=== PATIENT | female | born 1940 | race Caucasian/White ===

== ENCOUNTER 2020-05-22 08:32 | Outpatient (CLI) | payer MEDICARE, SELFPAY ==
--- NOTE | 2020-05-22 08:35 | ECG_ITS ---
Measurements Intervals [place] Rate: 59 P: 1 AR: 158 QRS: -11 QRSD: 93 T: 17 QT: 392 QTc: 389 Interpretive Statements SINUS BRADYCARDIA VOLTAGE CRITERIA FOR LVH POOR R WAVE PROGRESSION, ANTERIOR LEADS BASELINE ARTIFACT- I, II, III, AVR, AVL, AVF BORDERLINE ECG Electronically Signed On 05-22-2020 11:49:52 CDT by Mj Hernandez D.O.
[2020-05-22 09:11] LABS: Anion Gap 8 mmol/L (8-16); Blood Urea Nitrogen 21 mg/dL (7-17); Calcium 10.2 mg/dL (8.4-10.2); Carbon Dioxide 30 mmol/L (22-30); Chloride 99 mmol/L (98-107); Estimated Glomerular Filt Rate > 60; Glucose 101 mg/dL (65-105); Sodium 137 mmol/L (137-145)
== END 2020-05-22 08:33 | disposition home or self-care (01) ==
PROVIDERS: Anesthesiology; PCP Family Medicine; Visit Provider Orthopaedic Surgery
DX: Z01.818 Encounter for other preprocedural examination (principal); E78.00 Pure hypercholesterolemia, unspecified; Z79.899 Other long term (current) drug therapy
CPT/HCPCS: 36415; 80048; 93005

== ENCOUNTER 2020-05-23 00:40 | Outpatient (CLI) | payer MEDICARE, SELFPAY ==
[2020-05-23 18:35] LABS: SARS-CoV-2 RNA PCR Negative
== END 2020-05-23 00:41 | disposition home or self-care (01) ==
LOC: ANHCOVIDDT 00:40
PROVIDERS: Visit Provider Orthopaedic Surgery
DX: Z01.812 Encounter for preprocedural laboratory examination (principal); Z20.828 Contact with and (suspected) exposure to other viral communicable diseases
CPT/HCPCS: 87635; C9803; U0003

== ENCOUNTER 2020-05-26 01:34 | Day surgery (SDC) | payer MEDICARE, SELFPAY ==
[2020-05-20 13:54] VITALS: BMI 34.2
[2020-05-26] VITALS (7 sets, daily range): BP systolic 128–150; BP diastolic 55–81; PULSE 55–77; RESP 8–18; TEMP 36.4–36.6; O2SAT 94–98
--- NOTE | 2020-05-26 08:52 | WPDANESEPPF ---
Anes - Initial Pre Proc Eval Procedure: Operation Date: 05/26/20 10:30 Proposed Procedures p Left Knee Arthroscopy with Peripatellar Debridement - Tyler Lester MD Date/Time: 05/26/20 08:52 Surgeon: Tyler Lester MD Pre Op Diagnosis: left knee peripatellar pain Patient Data Age: 79 Gender: F Height: 5 ft 6 in Weight: 96.36 kg Allergies Allergy/AdvReac Type Severity Reaction Status Date / Time No Known Allergies Allergy Verified 05/20/20 13:23 Home Medications Medication Instructions Recorded Confirmed Type calcium carbonate-vitamin D3 600 1 tablet PO BID 10/31/19 05/20/20 History mg(1,500 mg)-400 unit chewable tablet cholecalciferol (vitamin D3) 125 5,000 unit PO BID 10/31/19 05/20/20 History mcg (5,000 unit) capsule docusate sodium 100 mg capsule 100 mg PO BID PRN 10/31/19 05/20/20 History furosemide 20 mg tablet 20 mg PO QAM 10/31/19 05/20/20 History hydrochlorothiazide 50 mg tablet 50 mg PO DAILY 10/31/19 05/20/20 History pantoprazole 40 mg tablet,delayed 40 mg PO QAM 10/31/19 05/20/20 History release potassium chloride 20 mEq 20 meq PO DAILY 10/31/19 05/20/20 History tablet,extended release(part/cryst) sennosides 25 mg tablet 25 mg PO DAILY PRN 10/31/19 05/20/20 History simvastatin 80 mg tablet 80 mg PO DAILY 10/31/19 05/20/20 History verapamil 240 mg tablet,extended 240 mg PO DAILY 10/31/19 05/20/20 History release acetaminophen 650 mg 650 mg PO Q12H 05/20/20 05/20/20 History tablet,extended release aspirin 325 mg PO DAILY 05/20/20 05/20/20 History biotin 5,000 mcg disintegrating 10,000 mcg PO DAILY 05/20/20 05/20/20 History tablet fluticasone furoate 27.5 1 spray NASAL DAILY PRN 05/20/20 05/20/20 History mcg/actuation nasal spray,suspension meclizine 25 mg tablet 25 mg PO BID PRN 05/20/20 05/20/20 History teriparatide 20 mcg/dose (600 20 mcg SUB-Q DAILY 05/20/20 05/20/20 History mcg/2.4 mL) subcutaneous pen injector Patient hx anesthesia problems: post op nausea/vomiting Family hx anesthesia problems: none PMFSH Past Medical History Medical History Adult BMI 34.0-34.9 kg/sq m BMI 26.0-26.9,adult GERD (gastroesophageal reflux disease) Hyperlipidemia Hypertension Surgical History Surgical History History of back surgery Back disc 02/08/18 History of bilateral knee replacement History of knee replacement procedure of left knee 11/30/2018 History of knee replacement procedure of right knee 08/12/11 History of sinus surgery 10/01/17 Social History Social History Smoking status: Former smoker Tobacco type: cigarettes Additional smoking assessment comments: HX OF 1-1 1/2 PK/DAY/QUIT 1994 Alcohol intake: current Substance use: never Living arrangements: with friend(s) Additional living arrangements comments: - [facility] Spiritual care concerns: No Anes - Eval Final PreProcedure Day of Procedure 05/26/20 08:52 Patient weight: obese Heart: regular rate and rhythm Lungs: decreased breath sounds Airway: Mallampati scale class II Neurological: alert and oriented Last oral intake: >/= 8 hours ASA classification: III Emergent: no Anesthetic plan: proceed Anesthesia type and monitoring: general LMA and standard monitoring Informed Consent: The patient's anesthetic plan and its attendant risks and benefits were discussed with the patient/family/POA. Questions were solicited and answers provided to the satisfaction of the patient/family/POA.
[2020-05-26] MEDS: LACTATED RINGERS 1,000 ML 30 ML IV CONT (09:16)
[2020-05-26] MEDS: KETOROLAC 15 MG/ML VIAL (*BKC) IV PUSH (09:18)
--- NOTE | 2020-05-26 10:18 | WPDHPUPDATE1 ---
History and Physical Update Update Date/Time: 05/26/20 10:18 History and Physical has been reviewed, including an updated exam of the patient. There are NO changes in the patient's condition. Risks, benefits, and alternatives have been discussed and questions answered. Patient agrees to proceed with procedure.
[2020-05-26] MEDS: ceFAZolin 2 GM/D5W 50 ML 2 GM/50 ML BAG IVPB (10:23)
--- NOTE | 2020-05-26 11:34 | P.OP_ITS ---
Procedure Note - Detailed Date of procedure: 05/26/20 Pre-op diagnosis: left knee peripatellar pain Post-op diagnosis: same Procedure performed: left knee arthroscopy with prepatellar debridement Description of procedure: The patient was identified and proper site identified. she was taken to the operating room and transferred to the OR table placing her supine taking care to pad the torso and extremities. After general anesthetic induction and intubation, a nonsterile tourniquet was placed high on the left thigh but was not used. The left lower extremity was positioned, prepped and draped in usual sterile fashion. 10 cc of 1% lidocaine was injected into the subcutaneous tissue in the area of the portals at start of the procedure, and an additional 10 at the end. The portals were established and the arthroscopy was carried out. the inside of the knee joint was relatively quiet with very little synovitis. There however was quite a bit of peripatellar scar tissue and at the inferior lateral portion of the patella the re was some focal inflammation. With a combination of the shaver and ArthroCare Wand the peripatellar scar tissue was debrided. Arthrocare Wand was used for hemostasis. The knee was flushed with a copious amount of arthroscopic fluid and equipment was removed. Portals were closed with three O nylon suture and a sterile dressing was applied. She tolerated the procedure well, was awakened, extubated and taken to recovery area in stable condition. There were no known intraoperative complications. Estimated blood loss was negligible. she received perioperative antibiotics. Anesthesia: GLMA Surgeon: Tyler Lester MD Estimated blood loss (mL): 10 Tourniquet time (min): 0 Drains: No Packing: No Pathology: none sent Complications: No immediate complications Condition: stable Disposition: PACU
== END 2020-05-26 13:23 | disposition home or self-care (01) ==
PROVIDERS: Visit Provider Orthopaedic Surgery
PROC: (CPT 29870; principal; 2020-05-26 10:30)
DX: M25.562 Pain in left knee (principal); M22.8X2 Other disorders of patella, left knee; M13.162 Monoarthritis, not elsewhere classified, left knee; I10 Essential (primary) hypertension; E78.5 Hyperlipidemia, unspecified; K21.9 Gastro-esophageal reflux disease without esophagitis; Z79.82 Long term (current) use of aspirin; Z96.653 Presence of artificial knee joint, bilateral; Z87.891 Personal history of nicotine dependence; E66.9 Obesity, unspecified; Z68.35 Body mass index [BMI] 35.0-35.9, adult
CPT/HCPCS: 29999; J0690; J1100; J1885; J2250; J2405; J2704; J3010; J7120

== ENCOUNTER 2020-07-23 10:59 | Outpatient (CLI) | payer MEDICARE, SELFPAY ==
--- NOTE | ~2020-07-23 | CT_ITS ---
EXAMINATION: CT cervical spine wo con DATE: 07/23/2020 11:18 INDICATION: Pseudoarthrosis of the cervical spine. Neck pain radiating down the left arm. TECHNIQUE: Computed tomography (CT) of the cervical spine was performed without intravenous contrast. Automated exposure control and iterative reconstruction technique were employed. The dose-length pro duct was 353.42 mGy-cm. COMPARISON: 05/03/2019 FINDINGS: 1-2 mm anterolisthesis C2 on C3, 2 mm anterolisthesis C3 on C4 and 1 mm anterolisthesis C7 on T1. Pos toperative change of prior C4-C6 anterior spinal fusion with anterior plate and screw fixation and in terbody bone graft cages. There is however residual lucency along the disc spaces and associated face t joints which remain unfused with no solid osseous bridging. Severe disc height loss at C6-C7. Ather osclerotic calcification is at the bilateral carotid bulbs. Moderate mucosal thickening in the spheno id sinuses with some bubbly mucus in the right sphenoid sinus. The visualized portions of the mastoid air cells, middle ear cavities, airway and apices of the lungs are clear. The following disc levels are specifically discussed: C2-C3: There is no uncovertebral joint osteoarthritis. There is severe bilateral facet joint osteoart hritis. There is mild bilateral neural foraminal stenosis. There is mild central canal stenosis. C3-C4: There is mild bilateral uncovertebral joint osteoarthritis. There is severe bilateral facet josemanuel int osteoarthritis. There is mild left and mild to moderate right neural foraminal stenosis. There is mild central canal stenosis. C4-C5: There is mild right and moderate left uncovertebral joint osteoarthritis. There is moderate ri ght and severe left facet joint osteoarthritis. There is mild bilateral neural foraminal stenosis. Th ere is no central canal stenosis. C5-C6: There is moderate bilateral uncovertebral joint osteoarthritis. There is moderate to severe bi lateral facet joint osteoarthritis. There is mild bilateral neural foraminal stenosis. There is no ce ntral canal stenosis. C6-C7: There is severe bilateral uncovertebral joint osteoarthritis. There is mild bilateral facet josemanuel int osteoarthritis. There is mild bilateral neural foraminal stenosis. There is mild central canal st enosis. C7-T1: There is no uncovertebral joint osteoarthritis. There is severe bilateral, left greater than r ight facet joint osteoarthritis. There is mild right neural foraminal stenosis. There is no central c anal stenosis. IMPRESSION: 1. Instrumented C4-C6 anterior spinal fusion procedure which remains unfused without solid osseous br idging across the disc spaces or uncovertebral joints. 2. No significant interval change in severe cervical spondylosis. Reviewed, dictated and finalized at location B. IMPRESSION: 1. Instrumented C4-C6 anterior spinal fusion procedure which remains unfused wi thout solid osseous bridging across the disc spaces or uncovertebral joints. 2. No significant interval change in severe cervical spondylosis.
--- OUTSIDE RECORDS SUMMARY | 2020-08-29 14:33 | XMS_ITS | Referral Summary ---
:1940 Author Organization [facility] Address [facility] [place] [address] [place] [address] Care Team Providers Name Role Phone Carlito Liang DO Primary Care Provider MD Kemi Agra Production Line Mechanic Charlie Torres MD Referring Physician Reason for Referral Physical Medicine (Routine) Status Reason Specialty Diagnoses / Referred By Referred To Procedures Contact Contact Authorized Physical PHYSICAL Diagnoses Pseudoarthrosis of cervical spine, subsequent encounter S/P cervical spinal fusion Che, [facility] Matilda ZOFIA Warren [address] [id number] Phone: Fax: Scheduling Instructions Prefers PT at [facility]. Plan to begin in ~2 weeks. Lifting restrictions 25 lbs. Please incl ude passive
== END 2020-07-23 11:00 | disposition home or self-care (01) ==
DX: S12.9XXD Fracture of neck, unspecified, subsequent encounter (principal)
CPT/HCPCS: 72125

== ENCOUNTER 2020-09-09 10:00 | Outpatient (RCR) | payer MEDICARE, SELFPAY ==
--- NOTE | 2020-09-09 11:08 | PTOPEVAL ---
Thank you for referring Ira Garcia to [facility].? The patient is scheduled to be seen for therapy? ____x/week for ___ weeks. Please review, sign, date and return this plan of care KVNG. I agree with and certify that the following plan of care is medically necessary. Referring Physician Date Admitting Provider: Attending Provider: PHYSICIAN NOT ON STAFF Referring Provider: *PT Outpatient Evaluation Start: 09/09/20 10:12 Freq: Status: Active Protocol: Document 09/09/20 10:10 Rashid (Rec: 09/09/20 10:56 [facility] [id number]) Therapy Assessment Status Assessment Status Assessment Status Evaluation Outpatient Past Medical History Neurological History Hx Neurological Disorders No Significant History Cardiovascular History Hx Hypercholesterolemia Yes Hx Hypertension Yes Hx Other Cardiac Disorders Yes: PT DENIES CARDIAC SYMPTOMS Respiratory History Hx Respiratory Disorders No Significant History Gastrointestinal History Hx Appendectomy Yes Hx Gastroesophageal Reflux Disease Yes Hx Other Gastrointestinal Disorders Yes: OCCASIONAL CONSTIPATION Genitourinary History Hx Genitourinary Disorders No Significant History Musculoskeletal History Hx Arthritis Yes Hx Back Pain Yes: CHRONIC - WEAR BONE STIMULATOR 4 HRS DAILY Hx Joint Replacement Yes: RT KNEE 2010, LT KNEE 2018 Hx Orthopedic Surgery Yes Hx Osteoporosis Yes Hx Spinal Surgery Yes: C-2, 3 & 4 WITH PLATE & SKREWS 2018 Hematological History Hx Blood Transfusions Yes Endocrine History Hx Endocrine Disorders No Significant History HEENT History Hx Cataracts Yes: BILATERAL SURGERY Hx Sinus Problems Yes: SEASONAL ALLERGIES, HX SINUS SURGRY 2017 Hx Other HEENT Disorders Yes: VERTIGO Integumentary History Hx Skin Disorders No Significant History Reproductive History Hx Hysterectomy Yes Hx Tubal Ligation Yes Hx Other Reproductive Disorders Yes: HX OF SURGERY FOR TUBAL Psychosocial History Hx Psychiatric Disorders No Significant History Pain History Has Past Pain Affected Your Daily Life Yes Anesthesia History Hx Post-Op Nausea/Vomiting Yes Other History Hx Implanted Device Yes: HARDWARE C-SPINE Evaluation Information Problem Diagnosis cervical spine s/p fusion Onset 08/27/20 Subjective Information patient reports she had Query Text:As Reported By Patient/ cervical fusion of the C3-C7 Family
--- NOTE | 2020-10-13 11:06 | PTOPEVAL ---
Thank you for referring Ira Garcia to [facility].? The patient is scheduled to be seen for therapy? __3__x/week for 9 visits. Please review, sign, date and return this plan of care KVNG. I agree with and certify that the following plan of care is medically necessary. Referring Physician Date Admitting Provider: Attending Provider: PHYSICIAN NOT ON STAFF Referring Provider: *PT Outpatient Evaluation Start: 09/09/20 10:12 Freq: Status: Active Protocol: Document 10/13/20 10:20 KATINA (Rec: 10/13/20 11:06 KATINA [id number]) Therapy Assessment Status Assessment Status Assessment Status Progress Outpatient Past Medical History Neurological History Hx Other Neurological Disorders Yes: NECK SURGERY 08/2020 Cardiovascular History Hx Hypercholesterolemia Yes Hx Hypertension Yes Hx Other Cardiac Disorders Yes: PT DENIES CARDIAC SYMPTOMS Respiratory History Hx Respiratory Disorders No Significant History Gastrointestinal History Hx Appendectomy Yes Hx Gastroesophageal Reflux Disease Yes Hx Other Gastrointestinal Disorders Yes: OCCASIONAL CONSTIPATION Genitourinary History Hx Genitourinary Disorders No Significant History Musculoskeletal History Hx Arthritis Yes Hx Back Pain Yes: CHRONIC - WEAR BONE STIMULATOR 4 HRS DAILY Hx Joint Replacement Yes: RT KNEE 2010, LT KNEE 2018 Hx Orthopedic Surgery Yes Hx Osteoporosis Yes Hx Spinal Surgery Yes: C-2, 3 & 4 WITH PLATE & SKREWS 2018 Hematological History Hx Blood Transfusions Yes Endocrine History Hx Endocrine Disorders No Significant History HEENT History Hx Cataracts Yes: BILATERAL SURGERY Hx Sinus Problems Yes: SEASONAL ALLERGIES, HX SINUS SURGRY 2017 Hx Other HEENT Disorders Yes: VERTIGO Integumentary History Hx Skin Disorders No Significant History Reproductive History Hx Hysterectomy Yes Hx Tubal Ligation Yes Hx Other Reproductive Disorders Yes: HX OF SURGERY FOR TUBAL Psychosocial History Hx Psychiatric Disorders No Significant History Pain History Has Past Pain Affected Your Daily Life Yes Anesthesia History Hx Post-Op Nausea/Vomiting Yes Other History Hx Implanted Device Yes: HARDWARE C-SPINE Evaluation Information Problem Diagnosis cervical spine fusion Onset 08/21/20 Subjective Information Pt. reports that she is Query Text:As Reported By Patient/ getting stronger. She is Family
--- NOTE | 2020-11-05 11:09 | PTOPEVAL ---
Thank you for referring Ira Garcia to [facility] [place].? The patient is scheduled to be seen for therapy? ____x/week for ___ weeks. Please review, sign, date and return this plan of care KVNG. I agree with and certify that the following plan of care is medically necessary. Referring Physician Date Admitting Provider: Attending Provider: PHYSICIAN NOT ON STAFF Referring Provider: *PT Outpatient Evaluation Start: 09/09/20 10:12 Freq: Status: Active Protocol: Document 11/05/20 10:00 Rashid (Rec: 11/05/20 11:05 Rashid [email or web address]) Therapy Assessment Status Assessment Status Assessment Status Re-evaluation Outpatient Past Medical History Neurological History Hx Other Neurological Disorders Yes: NECK SURGERY 08/2020 Cardiovascular History Hx Hypercholesterolemia Yes Hx Hypertension Yes Hx Other Cardiac Disorders Yes: PT DENIES CARDIAC SYMPTOMS Respiratory History Hx Respiratory Disorders No Significant History Gastrointestinal History Hx Appendectomy Yes Hx Gastroesophageal Reflux Disease Yes Hx Other Gastrointestinal Disorders Yes: OCCASIONAL CONSTIPATION Genitourinary History Hx Genitourinary Disorders No Significant History Musculoskeletal History Hx Arthritis Yes Hx Back Pain Yes: CHRONIC - WEAR BONE STIMULATOR 4 HRS DAILY Hx Joint Replacement Yes: RT KNEE 2010, LT KNEE 2018 Hx Orthopedic Surgery Yes Hx Osteoporosis Yes Hx Spinal Surgery Yes: C-2, 3 & 4 WITH PLATE & SKREWS 2018 Hematological History Hx Blood Transfusions Yes Endocrine History Hx Endocrine Disorders No Significant History HEENT History Hx Cataracts Yes: BILATERAL SURGERY Hx Sinus Problems Yes: SEASONAL ALLERGIES, HX SINUS SURGRY 2017 Hx Other HEENT Disorders Yes: VERTIGO Integumentary History Hx Skin Disorders No Significant History Reproductive History Hx Hysterectomy Yes Hx Tubal Ligation Yes Hx Other Reproductive Disorders Yes: HX OF SURGERY FOR TUBAL Psychosocial History Hx Psychiatric Disorders No Significant History Pain History Has Past Pain Affected Your Daily Life Yes Anesthesia History Hx Post-Op Nausea/Vomiting Yes Other History Hx Implanted Device Yes: HARDWARE C-SPINE Evaluation Information Problem Diagnosis cervical spine fusion Onset 08/21/20 Additional Evaluation Detail ndi = 36% Subjective Information patient reports she is feeling Query Text:As Reported By Patient/
== END 2020-12-09 17:19 | disposition still patient (30) ==
LOC: CHSPT 10:00
DX: S12.9XXD Fracture of neck, unspecified, subsequent encounter (principal); Z98.1 Arthrodesis status
CPT/HCPCS: 97014; 97110; 97112; 97140; 97161; 97530; G0283

== ENCOUNTER 2020-09-23 11:58 | Inpatient (IN) | payer MEDICARE, SELFPAY ==
[2020-09-23] VITALS (11 sets, daily range): BP systolic 110–173; BP diastolic 52–94; PULSE 49–83; RESP 15–27; TEMP 36.6–36.7; O2SAT 82–99; BMI 34.7
--- NOTE | ~2020-09-23 | CT_ITS ---
EXAMINATION: CTA chest PE protocol EXAM DATE: 09/23/2020 18:31 INDICATION: Low oxygen saturation. Elevated d-dimer. Recent neck surgery. TECHNIQUE: Spiral CTA of the chest (pulmonary arteries) was performed with 100 cc Omnipaque 350 intr avenous contrast injection. Images were acquired during the pulmonary arterial phase. Coronal maxi mum intensity projection 3D-reconstructions were created by the technologist on dedicated workstation . Axial, coronal and sagittal reformatted images were reviewed. The dose-length product (DLP) for t his examination was 1078.27 mGy-cm. The exposure was tailored according to patient size (auto mA ex posure control), and iterative reconstruction (ASIR) was used as additional dose reduction technique. There is no prior study for comparison. FINDINGS: Positive for several small, segmental pulmonary emboli, right lower lobe, right middle lob e. No thoracic aortic dissection. Linear left basilar atelectasis. The lungs are otherwise clear. T here is small sliding gastroesophageal hiatal hernia. There are no pleural or pericardial effusions. Tracheobronchial tree is patent. There is no mediastinal, hilar or axillary lymphadenopathy. T here is no pneumothorax. Heart normal in size. There is mild coronary arterial calcification, art erial sclerosis. Upper abdomen is unremarkable. There is thoracic spondylosis without osteoblastic or osteolytic lesions identified. IMPRESSION: 1. Positive for right lower, middle lobe segmental pulmonary emboli, low clot burden. 2. Linear left basilar atelectasis. Reviewed, dictated and finalized at location A. LINING STITCHER
--- NOTE | ~2020-09-23 | XR_ITS ---
EXAMINATION: XR chest 2V DATE: 09/23/2020 14:43 INDICATION: Shortness of breath and cough TECHNIQUE: frontal and lateral views of the chest were obtained. COMPARISON: Chest radiograph dated 08/02/2011 FINDINGS: The lungs remain clear with no focal airspace opacities, pulmonary edema, pleural effusion or pneumot horax. The cardiomediastinal silhouette is normal. Instrumented combined anterior and posterior spina l fusion at the lower cervical spine, the posterior spinal fusion likely extending to T1. IMPRESSION: 1. No acute cardiopulmonary disease. Reviewed, dictated and finalized at location B. [employer]
--- NOTE | ~2020-09-23 | CT_ITS ---
EXAMINATION: CT abdomen pelvis wo con DATE: 09/23/2020 14:28 INDICATION: Right flank pain. TECHNIQUE: Computed tomography (CT) of the abdomen and pelvis was performed without intravenous contr ast. Automated exposure control and iterative reconstruction technique were employed. The dose-length product was 946.33 mGy-cm. COMPARISON: None. FINDINGS: The visualized portions of the lung bases demonstrate mild atelectasis. There is a pneumato marilee in left lower lobe. No pleural effusion. The heart size is normal. There are coronary artery olvin cifications. No pericardial effusion. There is a small sliding hiatal hernia. The liver is normal. Ca lcifications in the spleen are consistent with old granulomatous disease. The gallbladder, pancreas, and adrenal glands are normal. There is mild right hydronephrosis and hydroureter to the level of a 2 mm stone in distal right ureter. There is a 15 mm mass of fat in right kidney, which may be an angio myolipoma or perinephric fat in an area of focal kidney volume loss. There is an 11 mm cyst in left k idney. There is diverticulosis of the colon without evidence of diverticulitis. There are no dilated loops of bowel. The appendix is not visualized. There are no pathologically enlarged lymph nodes. The re is no free intraperitoneal fluid. There is severe lower lumbar spondylosis. IMPRESSION: 1. 2 mm stone in distal right ureter with mild right hydronephrosis and hydroureter. Reviewed, dictated and finalized at location A. TRONICS TECHNOLOGY INSTRUCTOR IMPRESSION: 1. 2 mm stone in distal right ureter with mild right hydronephrosis and hydrou reter.
[2020-09-23 12:43] LABS: Add Urine Microscopic? YES; Appearance Urine Clear (Clear); Bilirubin Urine Negative (Negative); Blood Urine Negative (Negative); Color Urine Yellow (Yellow); Glucose Urine UA Negative (Negative); Ketones Urine Negative (Negative); Leukocyte Esterase Ur 1+ (Negative); Nitrate Urine Negative (Negative); Protein Urine Negative (Negative); Urobilinogen Urine 0.2 mg/dL (0.2-1.0)
[2020-09-23 12:48] LABS: RBC Urine 0-2 /hpf (0-2); WBC Urine 0-3 /hpf (0-3)
[2020-09-23 12:49] LABS: Bacteria Urine Trace /hpf; Squamous Epithelial Cell Urine Moderate /hpf (Few)
[2020-09-23] MEDS: KETOROLAC 30 MG/ML VIAL (*BKC) IV PUSH (13:04)
[2020-09-23] MEDS: ONDANSETRON INJ 4 MG/2 ML VIAL IV PUSH (13:04)
[2020-09-23 13:10] LABS: Basophils Absolute Auto 0.04 K/mm3 (0.00-0.10); Basophils Percent Auto 0.4 % (0.0-1.0); Eosinophils Absolute Auto 0.12 K/mm3 (0.02-0.50); Eosinophils Percent Auto 1.1 % (1.0-6.0); Hematocrit 43.1 % (35.0-42.0); Hemoglobin 13.8 g/dL (11.7-13.8); Immature Granulocyte Absolute 0.06 K/mm3 (0.00-0.00); Immature Granulocyte Percent A 0.5 % (0.0-0.0); Lymphocytes Absolute Auto 3.27 K/mm3 (1.10-4.50); Lymphocytes Percent Auto 28.8 % (18.0-42.0); Mean Corpuscular Hemoglobin 30.7 pg (27.0-31.0); Mean Corpuscular Volume 95.8 fL (78.0-102.0); Mean Platelet Volume 10.8 fl (9.2-11.8); Monocytes Absolute Auto 0.59 K/mm3 (0.10-0.90); Monocytes Percent Auto 5.2 % (2.0-11.0); Neutrophils Absolute Auto 7.3 K/mm3 (1.7-7.2); Platelet Count Result 253 K/mm3 (150-420); Red Cell Distribution Width 13.1 % (11.6-14.4); White Blood Count 11.4 K/mm3 (4.8-10.8)
[2020-09-23 13:26] LABS: Alanine Aminotransferase 17 U/L (14-59); Albumin Level 3.8 g/dL (3.4-5.0); Alkaline Phosphatase 141 U/L (46-116); Anion Gap 13 mmol/L (8-16); Aspartate Amino Transferase 12 U/L (15-37); Bilirubin,Total 0.6 mg/dL (0.00-1.00); Blood Urea Nitrogen 14 mg/dL (7-18); Calcium 10.9 mg/dL (8.5-10.1); Carbon Dioxide 27 mmol/L (21-32); Chloride 102 mmol/L (98-108); Estimated CRCL calculation 50 ml/min; Estimated Glomerular Filt Rate 56; Glucose 142 mg/dL (70-99); Osmolality Calculated 296 mOsm/kg (285-295); Potassium 3.3 mmol/L (3.5-5.1); Sodium 142 mmol/L (136-145); Total Protein 7.7 g/dL (6.4-8.2)
[2020-09-23 13:33] LABS: Lactic Acid Reflex 3.2 mmol/L (0.4-2.0)
--- NOTE | 2020-09-23 13:48 | ED.ABDPAIN ---
HPI - Abdominal Pain General Source: patient and family Mode of arrival: ambulatory Limitations: no limitations History of Present Illness HPI narrative: Patient comes in due to back pain on right side. This has been going on for a few hours. Pain has gotten more severe, is now moderately severe, and been associated with nausea. She comes in because of moderately severe right crampy flank pain, ongoing not relieved at home. Pertinent past history: past UTI Quality: cramping Relieving factors: nothing and vomiting Associated symptoms: denies other symptoms Related Data Home Medications Medication Instructions Recorded Confirmed calcium carbonate-vitamin D3 600 1 tablet PO BID 10/31/19 09/23/20 mg(1,500 mg)-400 unit chewable tablet cholecalciferol (vitamin D3) 125 5,000 unit PO BID 10/31/19 09/23/20 mcg (5,000 unit) capsule docusate sodium 100 mg capsule 100 mg PO BID PRN 10/31/19 09/23/20 furosemide 20 mg tablet 20 mg PO QAM 10/31/19 09/23/20 hydrochlorothiazide 50 mg tablet 50 mg PO DAILY 10/31/19 09/23/20 pantoprazole 40 mg tablet,delayed 40 mg PO QAM 10/31/19 09/23/20 release potassium chloride 20 mEq 20 meq PO DAILY 10/31/19 09/23/20 tablet,extended release(part/cryst) sennosides 25 mg tablet 25 mg PO DAILY PRN 10/31/19 09/23/20 simvastatin 80 mg tablet 80 mg PO DAILY 10/31/19 09/23/20 verapamil 240 mg tablet,extended 240 mg PO DAILY 10/31/19 09/23/20 release acetaminophen 650 mg 650 mg PO Q8H 05/20/20 09/23/20 tablet,extended release aspirin 325 mg PO DAILY 05/20/20 09/23/20 biotin 5,000 mcg disintegrating 10,000 mcg PO DAILY 05/20/20 09/23/20 tablet fluticasone furoate 27.5 1 spray NASAL DAILY PRN 05/20/20 09/23/20 mcg/actuation nasal spray,suspension meclizine 25 mg tablet 25 mg PO BID PRN 05/20/20 09/23/20 teriparatide 20 mcg/dose (600 20 mcg SUB-Q DAILY 05/20/20 09/23/20 mcg/2.4 mL) subcutaneous pen injector methocarbamol 750 mg PO Q8H PRN 09/23/20 09/23/20 Allergies Allergy/AdvReac Type Severity Reaction Status Date / Time No Known Allergies Allergy Verified 09/23/20 14:17 Review of Systems Constitutional: Comments: fatigue, malaise Eyes: Eyes: Reports no additional eye complaints ENT: Reports system reviewed and no additional complaints, except as documented Cardiovascular: Cardiovascular: Reports no additional cardiovascular complaints Respiratory: Respiratory: Reports no additional respiratory complaints Gastrointestinal: Gastrointestinal: Reports nausea and Reports vomiting Genitourinary: Genitourinary: Reports no additional female genitourinary complaints Musculoskeletal: Musculoskeletal: Reports no additional musculoskeletal complaints Integumentary/Breasts: Skin/Breast: Reports system reviewed and no additional complaints, except as docu Neurologic: Reports system reviewed and no additional complaints, except as documented Psychiatric: Psychiatric: Reports no additional psychiatric complaints Endocrine: Endocrine: Reports no additional endocrine complaints Hematologic/Lymphatic: Hematologic/Lymphatic: Reports no additional hematologic/lymphatic complaints Allergic/Immunologic: Allergic/Immunologic: Reports no additional allergic/immunologic complaints [facility] Past Medical History Medical History Adult BMI 34.0-34.9 kg/sq m BMI 26.0-26.9,adult GERD (gastroesophageal reflux disease) Hyperlipidemia Hypertension Surgical History Surgical History History of arthroscopy of left knee May 2020 - peripatellar debridement History of back surgery Back disc 02/08/18 History of bilateral knee replacement History of knee replacement procedure of left knee 11/30/2018 History of knee replacement procedure of right knee 08/12/11 History of sinus surgery 10/01/17 Social History Social History Smo
[2020-09-23 13:58] LABS: Influenza Control Valid (Valid); SARS-CoV-2 Ag Negative (Negative)
[2020-09-23 16:06] LABS: Reflex Lactic Acid Yes or No Add Lactic
[2020-09-23] MEDS: TAMSULOSIN HCL 0.4 MG CAPSULE PO (16:44)
[2020-09-23] MEDS: SODIUM CHLORIDE 0.9% IV 1,000 ML 999 ML (16:45)
[2020-09-23] MEDS: POTASSIUM CHLORIDE 20 MEQ TABLET 40 MEQ PO ×2 (17:05→22:32)
[2020-09-23 17:27] LABS: D Dimer 3.57 mg/L (0.19-0.50)
[2020-09-23 17:28] LABS: BNP 73.5 pg/mL (0-100)
[2020-09-23 18:04] LABS: Base Excess ABG 1.6 mmol/L (0-2); HCO3 ABG 26.3 mmol/L (23-29); Oxygen Content ABG 17.9 %vol (16.0-22.0); Oxygen Saturation ABG 96.5 % (95-97); Oxyhemoglobin 95.4 % (94-100); PO2 ABG 87.1 mmHg (75-85); Total Hemoglobin 13.3 g/dL; pH ABG 7.42 (7.35-7.45)
[2020-09-23 18:05] LABS: Device NASAL CANNULA; Modified Allen's Test Pass; Site Drawn RIGHT BRACHIAL
[2020-09-23] MEDS: ENOXAPARIN 100 MG/ML SYRINGE SUB-Q ×2 (19:22→22:31)
[2020-09-23 20:20] LABS: Prothrombin Time 11.3 Seconds (9.50-12.10)
--- NOTE | 2020-09-23 23:44 | PC.NURSE ---
2014 here from er. She is a&o x's 4. lungs on r have coars sounds. abd is soft and bs present. dea legs feet no edema. incision to back of neck into back. open to air and well approx. Denies any n/v at this time. claims pain is well controlled also. hob up slightly. call light in reach and use explained. spo2 on 2l per nc is 94%.-kvrn 2200 up to br with stand by assist. gait steady. no assist needed. claims she only needs neck brace on during day, ok to go br without it. back to bed. spo2 on ra is 90-92%. o2 reapplied for comfort. kv rn
[2020-09-24] VITALS: BP 126/56; PULSE 64; RESP 20; TEMP 37.1
[2020-09-24 04:10] VITALS: BP 112/56; PULSE 64; RESP 18; TEMP 37.1; O2SAT 98
[2020-09-24 05:47] LABS: Platelet Count Result 186 K/mm3 (150-420)
[2020-09-24 07:05] VITALS: BP 108/58; PULSE 57; RESP 18; TEMP 37.2; O2SAT 98
[2020-09-24 07:09] LABS: Lactic Acid Reflex 0.8 mmol/L (0.4-2.0)
[2020-09-24 07:19] LABS: Anion Gap 5 mmol/L (8-16); Blood Urea Nitrogen 14 mg/dL (7-18); Calcium 9.4 mg/dL (8.5-10.1); Carbon Dioxide 31 mmol/L (21-32); Chloride 107 mmol/L (98-108); Estimated CRCL calculation 61 ml/min; Estimated Glomerular Filt Rate > 60; Glucose 93 mg/dL (70-99); Osmolality Calculated 296 mOsm/kg (285-295); Potassium 4.9 mmol/L (3.5-5.1); Sodium 143 mmol/L (136-145)
[2020-09-24 08:12] LABS: Hematocrit 37.1 % (35.0-42.0); Hemoglobin 11.2 g/dL (11.7-13.8); Mean Corpuscular HGB Conc 30.2 g/dL (32.0-36.0); Mean Corpuscular Hemoglobin 30.6 pg (27.0-31.0); Mean Corpuscular Volume 101.4 fL (78.0-102.0); Mean Platelet Volume 11.7 fl (9.2-11.8); Platelet Count Result 199 K/mm3 (150-420); Red Blood Count 3.66 M/mm3 (4.20-5.40); Red Cell Distribution Width 13.3 % (11.6-14.4); White Blood Count 6.8 K/mm3 (4.8-10.8)
[2020-09-24] MEDS: SIMVASTATIN 10 MG TABLET 80 MG PO (09:16)
[2020-09-24] MEDS: FUROSEMIDE 20 MG TABLET PO (09:16)
[2020-09-24] MEDS: VERAPAMIL HCL ER 120 MG TABLET 240 MG PO (09:16)
[2020-09-24] MEDS: PANTOPRAZOLE 40 MG TABLET PO (09:16)
[2020-09-24] MEDS: CALCIUM/VITAMIN D 250 MG TABLET 2 TABLET PO (09:17)
[2020-09-24] MEDS: TAMSULOSIN HCL 0.4 MG CAPSULE PO (09:17)
[2020-09-24] MEDS: ENOXAPARIN 100 MG/ML SYRINGE SUB-Q (09:19)
[2020-09-24] MEDS: GENTAMICIN SULFATE INJ 240 MG in DEXTROSE 5% 100 ML 100 MG IVPB (10:08)
[2020-09-24 10:30] VITALS: O2SAT 94
[2020-09-24 12:20] VITALS: BP 110/57; PULSE 60; RESP 18; TEMP 37.1; O2SAT 95
--- NOTE | 2020-09-24 13:37 | P.DS_ITS ---
DS: Admitting Diagnosis Admitting Diagnosis Admitting Diagnosis: PE nephrolithiasis <Andriytien AlondraCHEO SadlerC - Last Filed: 09/24/20 14:27> DS: Discharge Diagnosis Discharge Diagnosis (1) Pulmonary embolism: Qualifiers: Acute cor pulmonale presence: without acute cor pulmonale Chronicity: acute Pulmonary embolism type: unspecified Qualified Code(s): I26.99 - Other pulmonary embolism without acute cor pulmonale <BREA Fox - Last Filed: 09/24/20 14:27> Code(s): I26.99 - Other pulmonary embolism without acute cor pulmonale <AndriyMEI Leon-C - Last Filed: 09/24/20 14:27> Status: Acute <Rodolfo AlondraBREA Sadler - Last Filed: 09/24/20 14:27> Assessment and Plan: * CT indicates Positive for right lower, middle lobe segmental pulmonary emboli, low clot burden. * Patient will discharge home on Eliquis * Patient will follow her primary care physician <BREA Fox - Last Filed: 09/24/20 14:27> (2) Nephrolithiasis: Code(s): N20.0 - Calculus of kidney <BREA Fox - Last Filed: 09/24/20 14:27> Status: Acute <BREA Fox - Last Filed: 09/24/20 14:27> Assessment and Plan: * CT of the abdomen indicates 2 mm stone in distal right ureter with mild right hydronephrosis and hydroureter. * Patient pain-free on the day of discharge stone possibly passed * Patient will give instructions on strain <MEI Fox-Adele - Last Filed: 09/24/20 14:27> (3) Hydronephrosis: Code(s): N13.30 - Unspecified hydronephrosis <BREA Fox - Last Filed: 09/24/20 14:27> Status: Acute <BREA Fox - Last Filed: 09/24/20 14:27> Assessment and Plan: * Secondary to kidney stone * Stable * Renal function within normal limits <BREA Fox - Last Filed: 09/24/20 14:27> (4) Hydroureter: Code(s): N13.4 - Hydroureter <BREA Fox - Last Filed: 09/24/20 14:27> Status: Acute <Rodolfo Berman BREA - Last Filed: 09/24/20 14:27> Assessment and Plan: * Secondary to kidney stone * Stable * Renal function within normal limit <BREA Fox - Last Filed: 09/24/20 14:27> (5) H/O Spinal surgery: Code(s): Z98.890 - Other specified postprocedural states <BREA Fox - Last Filed: 09/24/20 14:27> Status: Acute <Rodolfo Berman BREA - Last Filed: 09/24/20 14:27> Assessment and Plan: * Patient will continue PT as instructed by neurosurgery * Follow-up with neurosurgery <Rodolfo Berman BREA - Last Filed: 09/24/20 14:27> DS: Summary Hospital Course Hospital Course: This is a 79-year-old white female presented to our ED on 09/23/2020 with complaints of back pain and right thigh pain and nausea. Patient D-dimer was elevated her CTA indicated positive for right lower middle lobe segmental pulmonary emboli. Her CT of her abdomen to make 2 mm stone in distal right hydronephrosis and hydroureter. During this hospital stay patient was given Zofran and she will be discharged with Eliquis for her PE. Patient will follow her primary care physician. Patient has recently had spinal surgery she will also follow-up with her neurosurgeon. The patient denies SOB, CP, palpitation, extremity numbness, lightheadedness, dizziness, constipation, diarrhea, chills, or fever. Patient abdominal pain has resolved she no longer has nausea and she was able to be titrated off of oxygen <Rodolfo Berman DOCUMENTATION NURSEDiandraAdele - Last Filed: 09/24/20 14:27> Time
--- NOTE | 2020-09-24 13:37 | PM.DS ---
DS: Admitting Diagnosis Admitting Diagnosis Admitting Diagnosis: PE nephrolithiasis <CHEO FoxC - Last Filed: 09/24/20 14:27> DS: Discharge Diagnosis Discharge Diagnosis (1) Pulmonary embolism: Qualifiers: Acute cor pulmonale presence: without acute cor pulmonale Chronicity: acute Pulmonary embolism type: unspecified Qualified Code(s): I26.99 - Other pulmonary embolism without acute cor pulmonale <BREA Fox - Last Filed: 09/24/20 14:27> Code(s): I26.99 - Other pulmonary embolism without acute cor pulmonale <CHEO FoxC - Last Filed: 09/24/20 14:27> Status: Acute <BREA Fox - Last Filed: 09/24/20 14:27> Assessment and Plan: CT indicates Positive for right lower, middle lobe segmental pulmonary emboli, low clot burden. Patient will discharge home on Eliquis Patient will follow her primary care physician <BREA Fox - Last Filed: 09/24/20 14:27> (2) Nephrolithiasis: Code(s): N20.0 - Calculus of kidney <BREA Fox - Last Filed: 09/24/20 14:27> Status: Acute <BREA Fox - Last Filed: 09/24/20 14:27> Assessment and Plan: CT of the abdomen indicates 2 mm stone in distal right ureter with mild right hydronephrosis and hydroureter. Patient pain-free on the day of discharge stone possibly passed Patient will give instructions on strain <BREA Fox - Last Filed: 09/24/20 14:27> (3) Hydronephrosis: Code(s): N13.30 - Unspecified hydronephrosis <BREA Fox - Last Filed: 09/24/20 14:27> Status: Acute <BREA Fox - Last Filed: 09/24/20 14:27> Assessment and Plan: Secondary to kidney stone Stable Renal function within normal limits <BREA Fox - Last Filed: 09/24/20 14:27> (4) Hydroureter: Code(s): N13.4 - Hydroureter <Rodolfo AlondraBREA Sadler - Last Filed: 09/24/20 14:27> Status: Acute <Andriytien Kapadia BREA Berman - Last Filed: 09/24/20 14:27> Assessment and Plan: Secondary to kidney stone Stable Renal function within normal limit <BREA Fox - Last Filed: 09/24/20 14:27> (5) H/O Spinal surgery: Code(s): Z98.890 - Other specified postprocedural states <BREA Fox - Last Filed: 09/24/20 14:27> Status: Acute <Andriytien CantuMEI SadlerDiandraAdele - Last Filed: 09/24/20 14:27> Assessment and Plan: Patient will continue PT as instructed by neurosurgery Follow-up with neurosurgery <BREA Fox - Last Filed: 09/24/20 14:27> DS: Summary Hospital Course Hospital Course: This is a 79-year-old white female presented to our ED on 09/23/2020 with complaints of back pain and right thigh pain and nausea. Patient D-dimer was elevated her CTA indicated positive for right lower middle lobe segmental pulmonary emboli. Her CT of her abdomen to make 2 mm stone in distal right hydronephrosis and hydroureter. During this hospital stay patient was given Zofran and she will be discharged with Eliquis for her PE. Patient will follow her primary care physician. Patient has recently had spinal surgery she will also follow-up with her neurosurgeon. The patient denies SOB, CP, palpitation, extremity numbness, lightheadedness, dizziness, constipation, diarrhea, chills, or fever. Patient abdominal pain has resolved she no longer has nausea and she was able to be titrated off of oxygen <BREA Fox - Last Filed: 09/24/20 14:27> Time Spent with Patient Time attestation: Total time spent providing and/or coordinating discharge services:60 <BREA Fox - Last Filed: 09/24/20 14:27> Exam Narrative: Exam Narrative: GENERAL: This is a well-nourished, well-developed patient, in no apparent distress. HEAD: normocephalic, atraumatic. EYES: PERRL.
--- NOTE | 2020-09-24 14:55 | PC.NURSE ---
Patient discharged home. All belongings and medication sent home with patient. All discharge instructions and education reviewed with patient. Patient states understanding. This nurse accompanied patient to front door, pt. left via private vehicle with patient. Patient denies any questions or concerns at discharge.
--- NOTE | 2020-09-25 10:00 | PC.NURSE ---
Pt states she received and understood her discharge instructions. When asked about her care she stated it was excellent, I'd come back anytime .
--- NOTE | 2020-10-16 12:32 | PC.NURSE ---
Unable to contact for discharge call back.
== END 2020-09-24 14:55 | disposition home or self-care (01) | DRG 176 ==
LOC: CHSED 12:01 → CHS2ND 20:01
PROVIDERS: Nurse Practitioner; Admitting Provider Emergency Medicine; Emergency Provider Emergency Medicine; Visit Provider Emergency Medicine
DX: I26.99 Other pulmonary embolism without acute cor pulmonale (principal); N13.2 Hydronephrosis with renal and ureteral calculous obstruction; K21.9 Gastro-esophageal reflux disease without esophagitis; E78.5 Hyperlipidemia, unspecified; I10 Essential (primary) hypertension; Z20.828 Contact with and (suspected) exposure to other viral communicable diseases; Z87.891 Personal history of nicotine dependence; Z96.653 Presence of artificial knee joint, bilateral
CPT/HCPCS: 36415; 36600; 71046; 71275; 74176; 80048; 80053; 81001; 82805; 83605; 83880; 85025; 85027; 85049; 85380; 85610; 87077; 87086; 87088; 87186; 87426; 87804; 96361; 96365; 96375; 97014; 97110; 97140; 99285; A9270; G0283; J0696; J1580; J1650; J1885; J2405; J7030; Q9965; Q9967

== ENCOUNTER 2020-12-11 09:58 | Outpatient (RCR) | payer MEDICARE, SELFPAY | END 2020-12-18 10:13 | disposition home or self-care (01) | LOC: CHSPT 09:58 | DX: S12.9XXD Fracture of neck, unspecified, subsequent encounter (principal); Z98.1 Arthrodesis status; M79.18 Myalgia, other site | CPT/HCPCS: 97110; 97530 ==

== ENCOUNTER 2021-05-29 08:33 | Outpatient (CLI) | payer MEDICARE, SELFPAY ==
--- NOTE | ~2021-05-29 | XR_ITS ---
EXAMINATION: XR_ENEMABAC_CR DATE: 05/29/2021 09:50 INDICATION: Incomplete screening colonoscopy. TECHNIQUE: A tree killer radiograph was obtained. A catheter was inserted into the patient's rectum. Contra st was infused by gravity. Gas was infused by hand pump. Fluoroscopic spot images and conventional ra diographs were obtained. Fluoroscopy exposure time was 0.7 minutes. The total number of images was 56 . COMPARISON: CT abdomen and pelvis 09/23/2020 FINDINGS: There are a few scattered diverticula in the colon. No mass or stricture. IMPRESSION: 1. No evidence of malignancy. Reviewed, dictated and finalized at location D.
== END 2021-05-29 08:34 | disposition home or self-care (01) ==
LOC: CHSIMG 08:35
PROVIDERS: PCP Family Medicine; Visit Provider Internal Medicine Gastroenterology
DX: Z53.9 Procedure and treatment not carried out, unspecified reason (principal)
CPT/HCPCS: 74280

== ENCOUNTER 2022-11-05 11:56 | Outpatient (CLI) | payer MEDICARE, SELFPAY ==
[2022-11-05 13:12] LABS: Ferritin 704 ng/mL (8-252); Iron 45 ug/dL (50-170)
== END 2022-11-05 11:57 | disposition home or self-care (01) ==
LOC: CHSLAB 11:58
PROVIDERS: PCP Family Medicine; Visit Provider Internal Medicine Pulmonary Disease
DX: D64.9 Anemia, unspecified (principal)
CPT/HCPCS: 36415; 82728; 83540

== ENCOUNTER 2023-12-01 09:39 | Outpatient (CLI) | payer MEDICARE, SELFPAY ==
[2023-12-01 09:55] LABS: Basophils Absolute Auto 0.03 K/mm3 (0.00-0.10); Basophils Percent Auto 0.3 % (0.0-1.0); Eosinophils Percent Auto 1.1 % (1.0-6.0); Hemoglobin 14.5 g/dL (11.7-13.8); Immature Granulocyte Absolute 0.04 K/mm3 (0.00-0.00); Immature Granulocyte Percent A 0.4 % (0.0-0.0); Lymphocytes Percent Auto 30.5 % (18.0-42.0); Mean Corpuscular HGB Conc 32.2 g/dL (32.0-36.0); Mean Platelet Volume 10.9 fl (9.2-11.8); Monocytes Absolute Auto 0.55 K/mm3 (0.10-0.90); Monocytes Percent Auto 5.8 % (2.0-11.0); Neutrophils Absolute Auto 5.9 K/mm3 (1.7-7.2); Neutrophils Percent Auto 61.9 % (50.0-70.0); Platelet Count Result 244 K/mm3 (150-420); Red Blood Count 4.84 M/mm3 (4.20-5.40); Red Cell Distribution Width 13.1 % (11.6-14.4); White Blood Count 9.5 K/mm3 (4.8-10.8)
[2023-12-01 12:17] LABS: Alanine Aminotransferase 32 U/L (14-59); Albumin Level 3.8 g/dL (3.4-5.0); Alkaline Phosphatase 105 U/L (46-116); Anion Gap 10 mmol/L (8-16); Aspartate Amino Transferase 19 U/L (15-37); Bilirubin,Total 0.7 mg/dL (0.00-1.00); Blood Urea Nitrogen 9 mg/dL (7-18); Calcium 9.5 mg/dL (8.5-10.1); Carbon Dioxide 32 mmol/L (21-32); Chloride 99 mmol/L (98-108); Cholesterol 167 mg/dL (0-200); Estimated Glomerular Filt Rate > 60; Glucose 114 mg/dL (70-99); HDL Direct 53 mg/dL (40-60); LDL Cholesterol Calculated 83 mg/dL (<130); Osmolality Calculated 291 mOsm/kg (285-295); Potassium 3.8 mmol/L (3.5-5.1); Sodium 141 mmol/L (136-145); Triglycerides 157 mg/dL (0-150)
== END 2023-12-01 09:40 | disposition home or self-care (01) ==
LOC: CHSLAB 09:41
PROVIDERS: PCP Family Medicine; Visit Provider Family Medicine
DX: E78.5 Hyperlipidemia, unspecified (principal); I10 Essential (primary) hypertension
CPT/HCPCS: 36415; 80053; 80061; 85025

== ENCOUNTER 2024-01-10 12:14 | Outpatient (CLI) | payer MEDICARE, SELFPAY ==
--- NOTE | ~2024-01-10 | US_ITS ---
EXAMINATION: US arterial ankle brachial ind DATE: 01/10/2024 13:10 INDICATION: Peripheral arterial disease. TECHNIQUE: Segmental pressures and plethysmographic and Doppler waveforms of the brachial and lower e xtremity arteries were obtained. COMPARISON: None. FINDINGS: Right and left brachial artery pressures of 178 mm Hg and 177 mm Hg, respectively, are concordant (no rmal difference <= 30 mmHg). The right ankle-brachial index (MARIBEL) is 0.82 (normal >= 0.9-1.0). The right great toe-brachial index (TBI) is 0.64 (normal >= 0.65). Arterial Doppler waveforms are biphasic at the ankle. The left MARIBEL is 0.88. The left TBI is 0.82. Arterial Doppler waveforms are biphasic at the ankle. IMPRESSION: 1. Mildly decreased ABIs, consistent with arterial occlusive disease. Reviewed, dictated and finalized at location A.
== END 2024-01-10 12:15 | disposition home or self-care (01) ==
LOC: CHSIMG 12:16
PROVIDERS: PCP Family Medicine; Visit Provider Family Medicine
DX: I73.9 Peripheral vascular disease, unspecified (principal); R25.2 Cramp and spasm
CPT/HCPCS: 93922

== ENCOUNTER 2024-05-16 09:51 | Outpatient (CLI) | payer MEDICARE, SELFPAY ==
[2024-05-16 10:24] LABS: Hemoglobin A1C 5.4 % (<5.7)
[2024-05-16 10:45] LABS: Thyroid Stimulating Hormone Reflex 1.19 u/IU/mL (0.36-3.74)
== END 2024-05-16 09:52 | disposition home or self-care (01) ==
LOC: CHSLAB 09:54
PROVIDERS: PCP Family Medicine; Visit Provider Nurse Practitioner Family
DX: I10 Essential (primary) hypertension (principal); R73.9 Hyperglycemia, unspecified
CPT/HCPCS: 36415; 83036; 84443

== ENCOUNTER 2024-05-21 10:18 | Outpatient (RCR) | payer MEDICARE, SELFPAY ==
--- NOTE | 2024-05-21 11:06 | PTOPEVAL1 ---
Assessment and note entered by John Mesa Evaluation Information Assessment Status Evaluation ICD-10 Condition Codes (PT) Weakness R53.1 Onset 10/24/23 Subjective Information Pt. reports that she has developed pain in both legs around the middle of October. She reports that she has had testing in regards to blood flow to the l.e., but states that her doctor is not finding any problems. She reports that she has noticed difficulty with balance and steadiness when getting out of bed. She has a sensation of the legs wanting to give out on her. She denies any falls. She reports that she is not using a AD . She reports that she still completes all IADL's and continues to drive. She reports that she has no problem with sleeping at night. She reports that pain in the legs and back and decreased the amount of walking and standing that she can tolerate. She reports she can stand for about 30 minutes before having to sit due to back and leg pain, which makes home maintenance difficult. She states that not that long ago she was able to walk for 1 mile, but cannot at this time. She reports that her goal is to improve her walking and her ability to stay on her feet. Reported Pain Level Pain Score 0: Self Report Assessment PT Clinical Summary Pt. is an 83 year old female who enters the clinic due to develop u.e. and l.e. weakness. She presents with impaired balance, impaired endurance , impaired l.e. and u.e. strength and functional decline. Continued skilled PT is indicated in order to improve these areas to allow for improved IADL performance and improved ability to perform household activities. Plan of Care Interventions Electrical Stimulation,Gait Training,Hot Pack/Cold Pack,Manual Therapy,Neuro Re-education, Therapeutic Activities,Therapeutic Exercise PT Services Indicated Yes Treatment Frequency and 2x/week x 10 visits. Duration These treatments will address the objective and functional deficits as defined above. The patient will be advanced safely and appropriately in order for the patient to progress towards his/her prior level of function. Additional exercises will be introduced and as well as a comprehensive home exercise program upon discharge, if needed, ?to ensure carryover of functional gains achieved in the clinic. This treatment plan has been reviewed and agreement upon by the patient.
--- NOTE | 2024-05-21 11:07 | OPREHPOC ---
Outpatient Therapy Plan of Care This is a Multidisciplinary Plan of Care that may contain components documented by all disciplines (PT, OT, and ST.) PT Problem 1 PT Problem #1 Knowledge Deficit PT Goal 1 Goal Pt. will be independent with a HEP addressing l.e. strength and endurance. Target Visit 2 PT Problem 2 PT Problem #2 Impaired Gait PT Goal 1 Goal Pt. will complete the 6 minute walk test without incidence of right toe drag. Target Visit 10 PT Problem 3 PT Problem #3 Impaired Strength PT Goal 1 Goal Pt. will demonstrate improve u.e. and l.e. strength to 4+/5 or greater in all muscle groups to improve postural awareness and endurance. Target Visit 10 PT Problem 4 PT Problem #4 Impaired Balance PT Goal 1 Goal Improve tinetti score to 26 or greater indicating low fall risk. Target Visit 10
--- NOTE | 2024-08-01 09:20 | OPREHPOC ---
Outpatient Therapy Plan of Care This is a Multidisciplinary Plan of Care that may contain components documented by all disciplines (PT, OT, and ST.) PT Problem 1 PT Problem #1 Knowledge Deficit PT Goal 1 Goal / Goal Update Pt. will be independent with a HEP addressing l.e. strength and endurance. Target Visit 2 Progress Met PT Problem 2 PT Problem #2 Impaired Gait PT Goal 1 Goal / Goal Update Pt. will complete the 6 minute walk test without incidence of right toe drag. Target Visit 10 Progress Met PT Problem 3 PT Problem #3 Impaired Strength PT Goal 1 Goal / Goal Update Pt. will demonstrate improve u.e. and l.e. strength to 4+/5 or greater in all muscle groups to improve postural awareness and endurance. Target Visit 10 Progress Partially Met PT Problem 4 PT Problem #4 Impaired Balance PT Goal 1 Goal / Goal Update Improve tinetti score to 26 or greater indicating low fall risk. Target Visit 10 Progress Not Met
--- NOTE | 2024-08-01 09:20 | PTOPDC ---
Assessment and note entered by JT File, PT Evaluation Information Assessment Status Discharge ICD-10 Condition Codes (PT) Weakness R53.1 Onset 10/24/23 Subjective Information patient reports today will be her last day. she reports she has a $30 copay for therapy that is getting expensive. she reports she doing her HEP at home. she reports she has had no falls since starting PT. Assessment PT Clinical Summary mrs. reagan presents to skilled PT for her 5th skilled PT visit. she presents today having made improvements in UE and LE strength. she only lacks LE strength goal due to hip flexion strength. she completes 6 minute walk test for 1205ft without rest and no toe drag today. she will DC skilled PT today. she will continue with HEP independent at home. Plan of Care PT Services Indicated Yes
== END 2024-06-15 10:45 | disposition home or self-care (01) ==
LOC: CHSPT 10:18
PROVIDERS: PCP Family Medicine; Visit Provider Nurse Practitioner Family
DX: I73.9 Peripheral vascular disease, unspecified (principal); R53.1 Weakness
CPT/HCPCS: 97110; 97112; 97161; 97530

== ENCOUNTER 2024-05-22 21:06 | Emergency (ER) | payer MEDICARE, SELFPAY ==
[2024-05-22 21:06] VITALS: BP 152/63; PULSE 84; RESP 18; TEMP 36.6; O2SAT 97
--- NOTE | 2024-05-22 22:14 | ED.URI ---
HPI - URI/Sore Throat General Chief Complaint: Upper Respiratory Infection Stated Complaint: URI Time Seen by Provider: 05/22/24 21:23 History of Present Illness HPI Narrative: Pt presents with low grade fever mild cough and body aches today. Pt were with grandkids recently who just tested positive for covid. Here to be tested for covid. Related Data Home Medications Medication Instructions Recorded Confirmed calcium carbonate 600 mg-vitamin 1 tablet PO BID 10/31/19 04/25/24 D3 10 mcg (400 unit) chewable tablet (Calcium 600 with Vitamin D3) docusate sodium 100 mg capsule 100 mg PO BID PRN Constipation 10/31/19 04/25/24 acetaminophen 650 mg 650 mg PO Q8H 05/20/20 04/25/24 tablet,extended release (Tylenol Arthritis Pain) biotin 5,000 mcg disintegrating 10,000 mcg PO DAILY 05/20/20 04/25/24 tablet fluticasone furoate 27.5 1 spray intranasal DAILY PRN 05/20/20 04/25/24 mcg/actuation nasal Congestion spray,suspension meclizine 25 mg tablet 25 mg PO BID PRN Vertigo 05/20/20 04/25/24 evqwzbjl-fspcwth-bxrd-lutein tablet tablet PO 01/04/24 04/25/24 ascorbic acid (vitamin C) 1,000 mg 1 g PO DAILY 04/25/24 04/25/24 capsule furosemide 20 mg tablet 20 mg PO QAM 04/25/24 04/25/24 hydrochlorothiazide 50 mg tablet 50 mg PO DAILY 04/25/24 04/25/24 Allergies Allergy/AdvReac Type Severity Reaction Status Date / Time No Known Allergies Allergy Verified 04/25/24 13:20 Review of Systems Review of Systems: All systems reviewed & are unremarkable except as noted in HPI and below PMFSH Past Medical History Medical History (Updated 05/22/24 @ 22:48 by Alejo Bravo III, DO) Adult BMI 34.0-34.9 kg/sq m Arterial occlusive disease BMI 26.0-26.9,adult GERD (gastroesophageal reflux disease) Hyperlipidemia Hypertension Surgical History Surgical History History of arthroscopy of left knee May 2020 - peripatellar debridement History of back surgery Back disc 02/08/18 History of bilateral knee replacement History of knee replacement procedure of left knee 11/30/2018 History of knee replacement procedure of right knee 08/12/11 History of sinus surgery 10/01/17 Social History Social History Smoking status: Former smoker Tobacco type: cigarettes Smoking end date: 10/09/86 Additional smoking assessment comments: HX OF 1-1 1/2 PK/DAY/QUIT 1994 Alcohol intake: current Drinks per week: 0 Alcohol use details: occasional Substance use: never Living arrangements: with friend(s) Additional living arrangements comments: - [place] Occupation/Education: retired Gender identity (if verbalized by the patient): Female Sexual Orientation (if Verbalized by the Patient): Straight or Heterosexual Spiritual care concerns: No MDM - URI/Sore Throat MDM Narrative Medical decision making narrative: pt presents with fever cough and body aches with covid exposure. will swab for covid flu and rsv. covid positive. not particularly high risk so won't start paxlovid. supportive care. Lab Data Labs: Lab Results 05/22/24 Range/Units 22:00 Influenza A (RT-PCR) Negative (Negative) Influenza B (RT-PCR) Negative (Negative) RSV (RT-PCR) Negative (Negative) SARS-CoV-2 RNA (RT-PCR) Positive A (Negative) Discharge Plan Discharge Clinical Impression: COVID Patient Disposition: Home, Self-Care Condition: Stable Instructions: Antibiotic Form, COVID-19 (Coronavirus Disease 2019) (ED) Prescriptions: No Action Calcium 600 with Vitamin D3 600 mg(1,500mg) -400 unit tablet,chewable 1 tablet PO BID docusate sodium 100 mg capsule 100 mg PO BID PRN (Reason: Constipation) biotin 5,000 mcg tablet,disintegrating 10,000 mcg PO DAILY acetaminophen [Tylenol Arthritis Pain] 650 mg tablet extended release 650 mg PO Q8H m
[2024-05-22 22:39] LABS: SARS-CoV-2 RNA PCR Positive (Negative)
[2024-05-22 22:43] LABS: Influenza A QL RT-PCR Negative (Negative); Influenza B QL RT-PCR Negative (Negative); RSV RNA, RT-PCR Negative (Negative)
[2024-05-22 22:55] VITALS: BP 149/60; PULSE 83; RESP 18; O2SAT 98
== END 2024-05-22 22:55 | disposition home or self-care (01) ==
PROVIDERS: Emergency Provider Emergency Medicine; PCP Family Medicine
DX: U07.1 COVID-19 (principal); Z87.891 Personal history of nicotine dependence
CPT/HCPCS: 87637; 99283

== ENCOUNTER 2024-10-17 12:40 | Outpatient (CLI) | payer MEDICARE, SELFPAY ==
--- NOTE | 2024-10-17 14:30 | NEURO_ITS ---
Impression: # Complains of numbness of lower extremities. Not Diabetic. ? # Sensory/Motor axonal neuropathy, sensory more than motor. ? # Needle/EMG exam abnormal with neurogenic changes. ? # Clinical correlation recommended. Nerve Conduction Studies Anti Sensory Summary Table ?Stim Site NR Peak (ms) P-T Amp (?V) Site1 Site2 Delta-P (ms) Dist (cm) Brian (m/s) Left Sup Fibular Anti Sensory (Ant Lat Mall)??? NO RESPONSE 14 cm NR 14 cm Ant Lat Mall 16.0 Right Sup Fibular Anti Sensory (Ant Lat Mall)??? NO RESPONSE 14 cm NR 14 cm Ant Lat Mall 16.0 Left Sural Anti Sensory (Lat Mall)??? NO RESPONSE Calf NR Calf Lat Mall 16.0 Right Sural Anti Sensory (Lat Mall) Calf ? 6.5 44.5 Calf Lat Mall 6.5 16.0 25 Motor Summary Table ?Stim Site NR Onset (ms) O-P Amp (mV) Site1 Site2 Delta-0 (ms) Dist (cm) Brian (m/s) Left Peroneal Motor (Vastus Med) Ankle ? 4.0 2.5 Popit Ankle 9.5 38.0 40 Popit ? 13.5 2.1 Right Peroneal Motor (Vastus Med) Ankle ? 4.1 1.7 Popit Ankle 9.0 38.0 42 Popit ? 13.1 1.9 Left Tibial Motor (Abd Zavala Brev) Ankle ? 4.1 5.9 Knee Ankle 10.0 42.0 42 Knee ? 14.1 2.5 Right Tibial Motor (Abd Zavala Brev) Ankle ? 4.3 1.4 Knee Ankle 10.7 39.0 36 Knee ? 15.0 2.8 F Wave Studies ?NR F-Lat (ms) L-R F-Lat (ms) Left Peroneal (Mrkrs) (EDB) ? 53.68 0.24 Right Peroneal (Mrkrs) (EDB) ? 53.44 0.24 Left Tibial (Mrkrs) (Abd Hallucis) ? 53.52 Right Tibial (Mrkrs) (Abd Hallucis)??? DISPERSED RESPONSE NR EMG ?Side Muscle Nerve Root Ins Act Fibs Amp Dur Recrt Comment Right AntTibialis Dp Br Fibular L4-5 Nml Nml Nml Nml Nml Right Gastroc Tibial S1-2 Nml Nml Nml Nml Nml Right Fibularis Long Sup Br Fibular L5-S1 Nml Nml Nml Nml Nml Right Flex Dig Long Tibial L5-S2 Nml Nml Decr >12ms +1 Right Ext Dig Brev Dp Br Fibular L5, S1 Nml Nml Decr >12ms +1 Right QuadratusFem QuadFemoris L4-5, S1 Nml Nml Nml Nml Nml Left AntTibialis Dp Br Fibular L4-5 Nml Nml Nml Nml Nml Left Gastroc Tibial S1-2 Nml Nml Nml Nml Nml Left Fibularis Long Sup Br Fibular L5-S1 Nml Nml Nml Nml Nml Left Flex Dig Long Tibial L5-S2 Nml Nml Decr >12ms +1 Left Ext Dig Brev Dp Br Fibular L5, S1 Nml Nml Decr >12ms +1 Left QuadratusFem QuadFemoris L4-5, S1 Nml Nml Nml Nml Nml MTDD
== END 2024-10-17 12:41 | disposition home or self-care (01) ==
PROVIDERS: PCP Family Medicine; Visit Provider Family Medicine
DX: G60.0 Hereditary motor and sensory neuropathy (principal)
CPT/HCPCS: 95886; 95910

== ENCOUNTER 2025-05-03 13:52 | Outpatient (RCR) | payer MEDICARE, SELFPAY ==
--- NOTE | 2025-05-03 14:59 | OPREHPOC ---
Outpatient Therapy Plan of Care This is a Multidisciplinary Plan of Care that may contain components documented by all disciplines (PT, OT, and ST.) PT Problem 1 PT Problem #1 Knowledge Deficit PT Goal 1 Goal / Goal Update Independent and compliant with HEP. Target Visit 2 PT Problem 2 PT Problem #2 Impaired Strength PT Goal 1 Goal / Goal Update Pt to improve bilat hip flexion strength to 4+/5. Pt to improve bilat hip abduction/adduction strength to 5/5. Pt to improve bilat knee flexion/extension strength to 5/5. Pt to improve upper abdominal strength to 3+/5. Pt to improve lower abdominal strength to 4/5. Target Visit 12 PT Problem 3 PT Problem #3 Impaired Functional Mobility PT Goal 1 Goal / Goal Update Pt to return to using the push mower to mow grass without pain/difficulty. Pt to be able to lift 20# from ground to waist level without low back pain and demonstrating good body mechanics. Target Visit 12
--- NOTE | 2025-05-03 14:59 | PTOPEVAL1 ---
Assessment and note entered by Greta Wilder, PT Evaluation Information Assessment Status Evaluation ICD-10 Condition Codes (PT) Pain in low back M54.50 Other ICD-10 Condition Codes ( Z98.890 PT) Onset 04/10/25 Subjective Information Pt reports she had back surgery on April 10 and she had home health PT for a few weeks, and she was discharged last Tuesday and now coming to outpatient. She has seen the doctor since the surgery and they said she is free of her precautions and she has a 50lb weight limit for lifting. Pt currently has no pain while sitting during eval. She notes she gets back pain in the area of her incision when bending forward. She has not been taking pain relievers and only takes muscle relaxers as needed. She's been gradually getting back into her daily activities. Prior to surgery she notes full bilateral foot/leg numbness. After surgery she does still note some numbness but it's not as frequent or as severe, and overall she states the surgery has helped a lot. Reported Pain Level Pain Score 0: Self Report Assessment PT Clinical Summary Mrs. Garcia is an 84 yo female presenting for skilled PT evaluation for low back pain following lumbar laminectomy on 04/10/25. She experiences only mild pain with bending forward and is currently under 20# weight restriction per her surgeon. She demonstrates moderate deficits in bilat hip strength as well as significant abdominal mm weakness. She will benefit from skilled PT intervention to improve on these deficits to return to full participation in daily activities such as cleaning, laundry, and mowing grass. Plan of Care Interventions Electrical Stimulation,Gait Training,Hot Pack/Cold Pack,Manual Therapy,Neuro Re-education,Patient/ Caregiver Education,Therapeutic Activities, Therapeutic Exercise,Self-Care/Home Management PT Services Indicated Yes Treatment Frequency and 2x/week for 12 visits Duration These treatments will address the objective and functional deficits as defined above. The patient will be advanced safely and appropriately in order for the patient to progress towards his/her prior level of function. Additional exercises will be introduced and as well as a comprehensive home exercise program upon discharge, if needed, ?to ensure carryover of functional gains achieved in the clinic. This treatment plan has been reviewed and agreement upon by the patient.
--- NOTE | 2025-06-12 11:57 | OPREHPOC ---
Outpatient Therapy Plan of Care This is a Multidisciplinary Plan of Care that may contain components documented by all disciplines (PT, OT, and ST.) PT Problem 1 PT Problem #1 Knowledge Deficit PT Goal 1 Goal / Goal Update Independent and compliant with HEP. Target Visit 2 Progress Met PT Problem 2 PT Problem #2 Impaired Strength PT Goal 1 Goal / Goal Update Pt to improve bilat hip flexion strength to 4+/5. -met Pt to improve bilat hip abduction/adduction strength to 5/5. -not assessed Pt to improve bilat knee flexion/extension strength to 5/5. -met Pt to improve upper abdominal strength to 3+/5. - not assessed Pt to improve lower abdominal strength to 4/5. - not assessed Target Visit 12 Progress Partially Met PT Problem 3 PT Problem #3 Impaired Functional Mobility PT Goal 1 Goal / Goal Update Pt to return to using the push mower to mow grass without pain/difficulty. -not met Pt to be able to lift 20# from ground to waist level without low back pain and demonstrating good body mechanics. -progress towards Target Visit 12 Progress Not Met
--- NOTE | 2025-06-12 11:57 | PTOPPROG ---
Assessment and note entered by Tasia Graham, PT Evaluation Information Assessment Status Progress ICD-10 Condition Codes (PT) Pain in low back M54.50 Other ICD-10 Condition Codes ( Z98.890 PT) Onset 04/10/25 Subjective Information Ira Garcia reports her back has not had pain since having surgery. She is back to all previous activities except vacuuming, mopping, and mowing. She saw her surgeon last week and was released. Assessment PT Clinical Summary Ira Garcia has completed 10 skilled PT visits for low back pain following lumbar laminectomy on 04/10. She is reporting no pain in her back and she has been able to return to all previous activity except vacuuming, mopping, and mowing. She demonstrates steady progress in her LE strength and core strength as well as functional mobility. She is progressing toward long-term goals well. Plan of Care Interventions Neuro Re-education,Patient/Caregiver Education, Therapeutic Activities,Therapeutic Exercise,Self- Care/Home Management PT Services Indicated Yes Treatment Frequency and Continue per POC for 2 additional visits Duration These treatments will address the objective and functional deficits as defined above. The patient will be advanced safely and appropriately in order for the patient to progress towards his/her prior level of function. Additional exercises will be introduced and as well as a comprehensive home exercise program upon discharge, if needed, ?to ensure carryover of functional gains achieved in the clinic. This treatment plan has been reviewed and agreement upon by the patient.
--- NOTE | 2025-06-17 11:45 | OPREHPOC ---
Outpatient Therapy Plan of Care This is a Multidisciplinary Plan of Care that may contain components documented by all disciplines (PT, OT, and ST.) PT Problem 1 PT Problem #1 Knowledge Deficit PT Goal 1 Goal / Goal Update Independent and compliant with HEP. Target Visit 2 Progress Met PT Problem 2 PT Problem #2 Impaired Strength PT Goal 1 Goal / Goal Update Pt to improve bilat hip flexion strength to 4+/5. -met Pt to improve bilat hip abduction/adduction strength to 5/5. -met Pt to improve bilat knee flexion/extension strength to 5/5. -met Pt to improve upper abdominal strength to 3+/5. - met Pt to improve lower abdominal strength to 4/5. - met Target Visit 12 Progress Met PT Problem 3 PT Problem #3 Impaired Functional Mobility PT Goal 1 Goal / Goal Update Pt to return to using the push mower to mow grass without pain/difficulty. -met Pt to be able to lift 20# from ground to waist level without low back pain and demonstrating good body mechanics. -progress towards Target Visit 12 Progress Partially Met
--- NOTE | 2025-06-17 11:45 | PTOPDC ---
Assessment and note entered by Greta Wilder, PT Evaluation Information Assessment Status Discharge ICD-10 Condition Codes (PT) Pain in low back M54.50 Other ICD-10 Condition Codes ( Z98.890 PT) Onset 04/10/25 Subjective Information Ira reports she no longer has pain in her low back and she has not had pain with any functional activities. She has returned to mowing the lawn and doing laundry without difficulty, and while she hasn't attempted mopping since surgery she doesn't feel like she'll have an issue with it. She has continued her exercises at home and plans to keep doing them a few times a week. Reported Pain Level Pain Score 0: Self Report Assessment PT Clinical Summary Mrs. Garcia has attended 12 skilled PT visits following lumbar laminectomy on 04/10/2025. She no longer has pain in her low back and she has returned to regular functional activities including laundry and mowing grass. She demonstrates improvement in LE and abdominal mm strength, and she is able to lift loads from the ground without any back pain. She has met or partially met all therapeutic goals set for her and is appropriate for discharge from skilled PT this date. Plan of Care PT Services Indicated No
== END 2025-06-17 20:00 | disposition home or self-care (01) ==
LOC: CHSPT 13:52
PROVIDERS: Visit Provider Nurse Practitioner
DX: M54.50 Low back pain, unspecified (principal); Z98.890 Other specified postprocedural states
CPT/HCPCS: 97110; 97112; 97150; 97161; 97530

== ENCOUNTER 2025-07-08 12:51 | Outpatient (CLI) | payer MEDICARE, SELFPAY ==
--- NOTE | ~2025-07-08 | US_ITS ---
EXAMINATION: US soft tissue head and neck, 07/08/2025 12:56 CDT HISTORY: R22.1 - Localized swelling, mass and lump, neck Comparison: None Technique: Newberry-scale and color Doppler images were obtained. Findings: Correlating with the palpable area in the left submandibular region the submandibular gland measures 4 x 2.5 x 1.7 cm with no abnormal flow. There are adjacent nonspecific mildly enlarged submandibular lymph nodes the largest measuring 20 x 10 mm with normal-appearing hilar and no abnormal flow IMPRESSION: 1. Nonspecific mild lymphadenopathy. Reactive and neoplastic arches can be considered. Follow-up is suggested to assess stability or resolution. Clinically if there is concern for neoplasm contrast-enhanced MRI is suggested Reviewed, dictated and finalized at location P. IMPRESSION: 1. Nonspecific mild lymphadenopathy. Reactive and neoplastic arches can be cons idered. Follow-up is suggested to assess stability or resolution. Clinically if there is concern for neoplasm contrast-enhanced MRI is suggested
--- OUTSIDE RECORDS SUMMARY | 2025-07-08 12:59 | XMS_ITS | Clinical Summary ---
Author Organization [facility] [employer] Address [address] [place] [address] Care Team Providers Care Diesel Mechanic Helper Name Role Phone Saul Torres MD Unavailable [phone] Destin Connors DO Primary Care Provider Allergies No known active allergies Medications calcium carbonate-vitam in D3 (CALTRATE 600 + D) 1500 mg (600 mg elemental) -400 units per tablet Take 1 tablet by mouth 2 (two) times a day 8 Active furosemide (LASIX) 20 mg tablet Take 1 tablet (20 mg total) by mouth daily 9 Active simvastatin (ZOCOR) 80 mg tablet Take 1 tablet (80 mg total) by mouth nightly 0 Active verapamil SR (CALAN SR) 240 mg CR tablet Take 1 tablet (240 mg total) by mouth daily 9 Active meclizine (ANTIVERT) 25 mg tablet Take 1 tablet (25 mg total) by mouth as needed for dizziness Active ascorbic acid (VITAMIN C) 500 mg tablet,chewable Take 1 tablet/chew tab (500 mg total) by mouth daily Active rOPINIRole (REQUIP) 0.25 mg tablet Take 1 tablet (0.25 mg total) by mouth nightly 3 Active docusate sodium (COLACE) 100 mg capsuleIndicati ons:constipatio n Take 1 capsule (100 mg total) by mouth 2 (two) times a day Active polycarbophil (FIBERCON) 625 mg tablet Take 1 tablet (625 mg total) by mouth daily as needed for constipation Vegetable Laxative Active cilostazoL (PLETAL) 100 mg tablet Take 1 tablet (100 mg total) by mouth 2 (two) times a day 4 Active nslccmvt-pxk-uw on-FA-vit K-lut 8 mg iron-400 mcg-50 mcg tablet Take 1 tablet by mouth daily Active biotin 5,000 mcg tablet,chewable Take 1 tablet/chew tab by mouth daily Active lisinopriL (PRINIVIL,ZESTR IL) 20 mg tablet Take 1 tablet (20 mg total) by mouth daily Active hydrocortisone 2.5 % cream Apply 1 Application topically as needed for irritation or rash 3 Active ketoconazole (NIZORAL) 2 % cream Apply 1 Application topically as needed for itching, irritation or rash 3 Active fluticasone propionate (Xhance) 93 mcg/actuation aerosol breath activatedIndica tions:Chronic pansinusitis,Na mihir polyps Administer 1 spray into affected nostril(s) 2 (two) times a day 16 mL 6 5 Active Active Problems Problem Noted Date Diagnosed Date Chronic sphenoidal sinusitis 02/15/2025 Sensation of fullness in both ears 07/10/2024 Assessment & Plan (07/10/2024 7:58 PM CDT): Her ears look good. Her hearing has not changed. I reassured her of that. I think her sinuses are probably causing a lot of the symptoms. She can probably get her hearing aids adjusted or least checked if needed. She understands. Nasal congestion 11/23/2023 Assessment & Plan (12/11/2024 11:37 AM TIE FASTENER): Nasal cavity looks pretty good on both sides. Probably dealing with an upper respiratory infection or sinusitis. I recommended that she continue with the Xhance. It appears to be helping a great deal. Assessment & Plan (11/28/2023 6:47 PM TIE FASTENER): Her nasal airway looks pretty good. I do not see any evidence of infection or significant inflammation. I am recommending that she continue with the Xhance spray. At this point she is going to follow up with me in about 6 months.. Nasal polyps 08/23/2023 Overview (08/29/2023): Endoscopically she does have some evidence of stenosis anteriorly with some slight polypoid changes that obscured the frontal sinus opening on either side. I am recommending continuing with the Xhance. I would like to see her in about 3 months. Assessment & Plan (03/28/2025 5:18 PM CDT): I recommended continuing with the Xhance. I think it is helping. Follow up in 6 months. Sooner if needed. Assessment & Plan (07/10/2024 7:57 PM CDT): This seems to be somewhat problematic still. I do not see polyps but I do see edema. I recommended that she continue with the Xhance. Follow up in 2 months. Assessment & Plan (08/29/2023 1:30 PM TIE FASTENER): Endoscopically she does have some evidence of stenosis anteriorly with polypoid changes that obscure the frontal sinus opening on either side. I am recommending that she continue with Xhance. I would like to have her follow up in about 3 months. Left ear pain 05/03/2023 Assessment & Plan (05/03/2023 8:39 PM CDT): I do not find any evidence of an ear infection or inflammation. I talked with the patient about possible reasons for ear pain that could be coming from another source. There is some potential for TMJ disorder to cause this. Also some potential for ear pain due to cervical strain or shoulder problems. 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 Suggested that she consider seeing her dentist again about. Sensorineural hearing loss (SNHL) of both ears 0 02/16/2023 Assessment & Plan (03/18/2023 4:46 PM CDT): She is doing quite well with her hearing aids. I am recommending no further intervention. Assessment & Plan (02/16/2023 12:53 PM CDT): I reviewed her hearing test with her. She has had some progression of her hearing loss. I think she would benefit from hearing aids. She notes that her has relatively new ones and he does not wear them. She would like to see if we can do anything to adjust her make them appropriate for her. I told her to contact our security architect for this and she is going to do that. Chronic pansinusitis 04/07/2022 Assessment & Plan (03/28/2025 5:18 PM CDT): She seems to be pretty stable and symptom-free. There is some minor polyp formation in the left frontal recess area. No abnormal discharge. The right frontal sinuses patent. Assessment & Plan (02/25/2025 1:29 PM CDT): She has had symptomatic relief after surgery. Much less pressure noted. Her culture is growing out 2 different strains of Pseudomonas. Both are sensitive to Cipro so I am going to go ahead and give her a prescription for that. She can discontinue her current antibiotic. I also gave her a couple of samples of Xhance. We will try to get her a prescription for that also. She would like to pursue that. She will follow up with me in about 4-6 weeks. Assessment & Plan (01/25/2025 10:30 AM CDT): CT scan today shows opacification of the left frontal sinus and frontal recess area. There is moderate bilateral sphenoid sinus disease despite patent ostia. I recommended revision surgery. I also discussed potentially referring her to a microbiology technologist. She would rather not do that. She would like to pursue endoscopic sinus surgery again. Has no questions. Assessment & Plan (12/11/2024 11:36 AM TIE FASTENER): She has some discharge coming from the left frontal sinus although the sinus opening appears to be patent. I am going to change her antibiotic to Ceftin for 2 weeks. Also going to have her take a steroid pack. Otherwise her sinuses look pretty good. The right side is essentially clear and normal. I recommended that she continue with the Xhance also. Follow up with me if she has any further problems. Assessment & Plan (07/10/2024 7:56 PM CDT): She does have some evidence of frontal sinusitis. There are some cloudy secretions coming from the frontal sinus openings bilaterally and they are narrow with some mucosal thickening. The discharge is not purulent but I think it probably needs to be addressed. I am recommending a steroid and antibiotic we are going to prescribe Ceftin for 2 weeks. The plan is for a follow up in about 2 months. I told her that her sinuses are probably what is causing her ear symptoms. Her hearing has not changed. Assessment & Plan (11/28/2023 6:48 PM TIE FASTENER): Endoscopically her sinuses look okay. Everything appears to be pretty open without significant abnormal discharge. I am recommending continue with the Xhance. Call if she has any problems with infection. Otherwise the plan is for a follow-up in about 6 months. Assessment & Plan (08/29/2023 1:19 PM TIE FASTENER): I am recommending continued observation. Symptomatically she seems to be much better. Hopefully her symptoms will remain under control but I did discuss the stenosis on either side. I am recommending that she continue with Xhance for now. She understands. She is going to follow up in about 3 months. Assessment & Plan (06/26/2023 2:51 PM CDT): She continues to have edema and mild discharge from the left frontal recess area. We talked about that. I am going to have her continue with the Xhance but I am also going to have her take a Kenalog shot today. The plan is for a follow-up in about 1-2 months to see how things are going. She will call if she has any problems. Assessment & Plan (06/05/2023 10:02 AM CDT): She does have some significant mucosal edema in the left ethmoid and frontal recess area which is worrisome. I am getting her samples of Xhance to use on the left side of her nose. The right side looks good. She no longer has to use her Flonase for now. The plan is for a follow-up in about 4 weeks. Assessment & Plan (05/03/2023 8:38 PM CDT): Again she has some edema involving the left anterior ethmoid cavity. This seems to be the side that is having recurring infections. I told her that she probably needs a revision procedure to address this area. I am recommending a sinus CT scan for further evaluation 1st. She understands. I will call her with the results and my recommendations. Assessment & Plan (03/18/2023 4:43 PM CDT): There does appear to be a little bit of discharge coming from the left frontal sinus area. She is asymptomatic. We talked about this. I recommended expectant treatment. She is going to follow up if she has further problems. Assessment & Plan (02/16/2023 12:52 PM CDT): She still has some significant edema in the anterior ethmoid cavity on the left side. Everything else looks pretty good although there is some slight polypoid degeneration of the middle turbinates more on the left. I recommended a steroid shot and I would like to have her follow up in about 4 weeks. Consider imaging at that time. She also would like to pursue this. Assessment & Plan (12/31/2022 6:20 PM CDT): She appears to have an acute sinus infection. Endoscopically the sinuses are open but there is some mild swelling of the mucosa with a little bit of discharge on the right side. I talked with her about that. I think that things overall look okay I do not see any evidence of recurrent mucocele. I am recommending treating with Ceftin and Dosepak. She would like to do that. She will follow up if she has any further problems. Assessment & Plan (04/07/2022 10:17 AM CDT): Appears improved. No need for further intervention. If she has continued problems with this I talked with her about possibly trying a balloon procedure again. The opening the frontal sinus on the right is fairly small. Cellulitis of right orbital region 04/07/2022 Assessment & Plan (03/18/2023 4:43 PM CDT): No further problems with this. Continue to watch. Assessment & Plan (12/31/2022 6:20 PM CDT): She is had no further recurrences of this which is encouraging. I told her to call if she has any signs or symptoms of this. Assessment & Plan (04/07/2022 10:16 AM CDT): Stable with no recurrences. I told her the call if she should have any further symptoms. Surgical History Surgery Date Site/Laterality Comments FUNCTIONAL ENDOSCOPIC SINUS SURGERY 09/28/2017 Bilateral bulateral maxes, total ethmoids, frontals sphenoids excision CB REPLACEMENT TOTAL KNEE 11/30/2018 Left HYSTERECTOMY 1979's REPLACEMENT TOTAL KNEE 10/10/2010 - 10/09/2011 Right KNEE ARTHROSCOPY 10/10/2019 - 10/09/2020 Left BREAST BIOPSY Left BENIGN SINUS SURGERY 07/11/2020 COLONOSCOPY 10/10/2018 - 10/09/2019 CERVICAL SPINE SURGERY 10/10/2016 - 10/09/2017 CATARACT EXTRACTION Bilateral NASAL/SINUS ENDOSCOPY 02/15/2025 Face/Bilateral Procedure: IMAGE GUIDED ENDOSCOPIC LEFT FRONTAL SINUSOTOMY, LEFT SPHENOIDOTOMY AND LEFT ANTERIOR ETHMOIDECTOMY; Surgeon: Saul Torres MD; Location: [facility]; Service: Otolaryngology; Laterality: Bilateral; Medical History Medical History Date Comments Vertigo GERD (gastroesophageal reflux disease) Sinusitis Hypertension Hyperlipidemia Tinnitus Arthritis Obesity Constipation Hemorrhoid Motion sickness Dental bridge present UPPER FRON T TEETH Chronic pansinusitis HL (hearing loss) wears bilat he aring aides Headache Kidney stone passed on own in past no further issues states PONV (postoperative nausea and vomiting) Sleep apnea wears cpap night ly Leg cramps Numbness and tingling hands and feet states is seeing for dx has appt. Covid-19 05/22/2024 Family History Medical History Relation Name Comments Cancer Mother Heart disease Mother Heart disease Other Cancer Sister Relation Name Status Comments Mother Other Sister Social History Tobacco Use Types Packs/Day Years Used Date Smoking Tobacco: Former Cigarettes 1 39 0 10/10/1954 - 10/10/1993 Smokeless Tobacco: Never Tobacco Cessation:Counseling Given: Not Answered Alcohol Use Standard Drinks/Week Comments Yes 0 (1 standard drink = 0.6 oz pur e alcohol) AUDIT-C Answer Date Recorded Q1: How often do you have a drink containing alc ohol? 2-3 times a week 02/15/2025 Q2: How many drinks containi ng alcohol do you have on a typical day when you are drinking? 1 or 2 02/15/2025 Q3: How often do you have si x or more drinks on one occasion? Never 02/15/2025 Personal Safety Answer Date Recorded Have you ever been in or are you currently in a harmful physical or emotional relationship or is someone making you feel afraid or unsafe? Denies 02/15/2025 Comments No Sex and Gender Information Value Date Recorded Sex Assigned at Not on file Legal Sex Female 8:17 PM TIE FASTENER Gender Identity Not on file Sexual Orientation Not on file Obstetrics History Last Filed Vital Signs Vital Sign Reading Time Taken Comments Blood Pressure 124/53 02/15/2025 2:00 PM CDT Pulse 42 02/15/2025 2:00 PM CDT Temperature 36.4 C (97.5 F) 02/15/2025 1:30 PM CDT Respiratory Rate 18 03/28/2025 9:37 AM CDT Oxygen Saturation 95% 02/15/2025 2:00 PM CDT Inhaled Oxygen Concentration - - Weight 95.3 kg (210 lb) 03/28/2025 9:37 AM CDT Height 167.6 cm (5' 6) 03/28/2025 9:37 AM CDT Body Mass Index 33.89 03/28/2025 9:37 AM CDT Plan of Treatment Health Maintenance Due Date Last Done Comments Depression Screening 1940 Osteoporosis Screening-Bone Density Scan 1941 Hepatitis B Screening 1959 Well Visit 65+ 2006 Zoster Vaccine (2 of 3) 04/23/2009 02/26/2009 DTaP/Tdap/Td Vaccine (3 - Td or Tdap) 05/03/2023 05/03/2013, 05/03/2013, 10/10/2000 Influenza Vaccine (#1) 2025 , 07/16/2020, 07/13/2019, Additional history exists Fall Risk Assessment 02/11/2026 02/11/2025 Pneumococcal vaccine 65+ Completed 018, 06/03/2015, 12/29/2006 Medical Devices Implanted Type Area Gasoline Dragline Operator Device Identifier Shelf Expiration Date Model / Serial / Lot Plate Plate Bilateral : Neck Description:Plate in back 20 Bilateral Knee Replacements Bilateral : Knee Insurance [facility] MEDIC[facility] [employer] MEDICARE [facility] Member Subscriber Plan / Payer (Ef fective 2022-Present) Name:Ira Garcia Relation to Subscriber:Self Name:Ira Garcia Payer ID:[id number] Group ID:Not on file Type:COMMERCIAL [facility] [address] [place] [address] [facility] MEDICARE ADVANTAGE Care Teams Diesel Mechanic Helper Relationship Specialty Start Date End Date Destin Connors DO [address] [place] [address] PCP - General Family Medicine 02/15/25 Saul Torres MD [address] [place] [address] Consulting Physician Otolaryngology 05/23/23
--- OUTSIDE RECORDS SUMMARY | 2025-07-08 12:59 | XMS_ITS | Patient Health Record ---
Author Organization [facility] Address [address] [place], [place] [id number] Support Name Relationship Address Phone GILBERTO ASHER Guarantor Unknown [phone] Reason For Referral No Information Plan Of Treatment No Information Insurance Providers Payer Name Payer Address Payer Phone Subscriber Number Group Number Insured Name Patient Relationship to Insured Coverage Start Date Coverage End Date Medicare Part B [place] [address] [place] [address] [id number] GILBERTO ASHER Self - patient is the insured [facility] [address] [address] [place], [place] [id number] GILBERTO ASHER Self - patient is the insured
== END 2025-07-08 12:52 | disposition home or self-care (01) ==
LOC: CHSIMG 12:53
PROVIDERS: PCP Nurse Practitioner Family; Visit Provider Nurse Practitioner Family
DX: R59.0 Localized enlarged lymph nodes (principal)
CPT/HCPCS: 76536

== ENCOUNTER 2025-07-09 08:22 | Outpatient (CLI) | payer MEDICARE, SELFPAY ==
[2025-07-09 08:31] LABS: Hematocrit 39.7 % (35.0-42.0); Hemoglobin 12.6 g/dL (11.7-13.8); Immature Granulocyte Percent A 0.3 % (0.0-0.0); Lymphocytes Absolute Auto 2.67 K/mm3 (1.10-4.50); Mean Corpuscular HGB Conc 31.7 g/dL (32-36); Mean Corpuscular Hemoglobin 31.5 pg (27.0-31.0); Mean Corpuscular Volume 99.3 fL (78.0-102.0); Nucleated Red Blood Cells Absolute Auto 0.00 K/mm3 (0.00-0.00); Nucleated Red Blood Cells Perc 0.0 % (0-0.0); Platelet Count Result 202 K/mm3 (150-420); Red Blood Count 4.00 M/mm3 (4.20-5.40); White Blood Count 6.5 K/mm3 (4.8-10.8)
--- OUTSIDE RECORDS SUMMARY | 2025-07-09 08:34 | XMS_ITS | Clinical Summary ---
Author Organization [facility] [employer] Address [address] [place] [address] Care Team Providers Care Mattress And Boxsprings Supervisor Name Role Phone Saul Torres MD Unavailable Destin Connors DO Primary Care Provider Allergies [...] 2 (two) times a day 4 Active pufxyioy-alf-vb on-FA-vit K-lut 8 mg iron-400 mcg-50 mcg [...] 11/23/2023 Assessment & Plan (12/11/2024 11:37 AM DIRECTOR OF EARLY CHILDHOOD EDUCATION): Nasal cavity looks pretty good on both sides. Probably dealing with an upper respiratory infection or sinusitis. I recommended that she continue with the Xhance. It appears to be helping a great deal. Assessment & Plan (11/28/2023 6:47 PM DIRECTOR OF EARLY CHILDHOOD EDUCATION): Her nasal airway looks pretty good. I [...] months. Assessment & Plan (08/29/2023 1:30 PM DIRECTOR OF EARLY CHILDHOOD EDUCATION): Endoscopically she does have some evidence of [...] her. I told her to contact our manager truck for this and she is going to [...] also discussed potentially referring her to a supervising film or videotape editor. She would rather not do that. She would like to pursue endoscopic sinus surgery again. Has no questions. Assessment & Plan (12/11/2024 11:36 AM DIRECTOR OF EARLY CHILDHOOD EDUCATION): She has some discharge coming from the [...] changed. Assessment & Plan (11/28/2023 6:48 PM DIRECTOR OF EARLY CHILDHOOD EDUCATION): Endoscopically her sinuses look okay. Everything appears to be pretty open without significant abnormal discharge. I am recommending continue with the Xhance. Call if she has any problems with infection. Otherwise the plan is for a follow-up in about 6 months. Assessment & Plan (08/29/2023 1:19 PM DIRECTOR OF EARLY CHILDHOOD EDUCATION): I am recommending continued observation. Symptomatically she [...] ANTERIOR ETHMOIDECTOMY; Surgeon: Saul Torres MD; Location: [facility] OPERATING RO[facility]; Service: Otolaryngology; Laterality: Bilateral; [...] on file Legal Sex Female 8:17 PM DIRECTOR OF EARLY CHILDHOOD EDUCATION Gender Identity Not on file Sexual Orientation [...] 06/03/2015, 12/29/2006 Medical Devices Implanted Type Area Baggage Smasher Device Identifier Shelf Expiration Date Model / Serial / Lot Plate Plate Bilateral : Neck Description:Plate in back 20 Bilateral Knee Replacements Bilateral : Knee Insurance [facility] MEDICARE [facility] Address: [address] [address] [place] [address] MEDICARE [facility]IC[facility] Address: [facility] [address] [place] [address] Care Teams Mattress And Boxsprings Supervisor Relationship Specialty Start Date End Date Destin Connors DO [address] [place] [address] PCP - General Family Medicine 02/15/25 Saul Torres MD [address] [place] [address] Consulting Physician Otolaryngology 05/23/23
--- OUTSIDE RECORDS SUMMARY | 2025-07-09 08:34 | XMS_ITS | Patient Health Record ---
Author Organization [facility] Address [address] [place], [place] [id number] Support Name Relationship Address Phone GILBERTO ASHER Guarantor Unknown [phone] Reason For Referral No Information Plan Of Treatment No Information Insurance Providers Payer Name Payer Address Payer Phone Subscriber Number Group Number Insured Name Patient Relationship to Insured Coverage Start Date Coverage End Date Medicare Part B [place] [address] [place] [address] [id number] GILBERTO ASHER Self - patient is the insured [facility] [address] [address] [place], [place] [id number] GILBERTO ASHER Self - patient is the insured
[2025-07-09 09:02] LABS: Alanine Aminotransferase 20 U/L (6-35); Albumin Level 3.9 g/dL (3.5-5.1); Alkaline Phosphatase 72 U/L (38-126); Anion Gap 7 mmol/L (4-12); Aspartate Amino Transferase 22 U/L (14-36); Bilirubin,Total 0.5 mg/dL (0.2-1.3); Blood Urea Nitrogen 14 mg/dL (7-17); Calcium 10.1 mg/dL (8.4-10.2); Carbon Dioxide 29 mmol/L (22-30); Chloride 105 mmol/L (98-107); Cholesterol 176 mg/dL (0-200); Estimated Glomerular Filt Rate > 60; Glucose 98 mg/dL (65-110); HDL Direct 61 mg/dL; Osmolality Calculated 292 mOsm/kg (285-295); Potassium 4.6 mmol/L (3.4-5.0); Sodium 141 mmol/L (137-145); Total Protein 6.6 g/dL (6.3-8.2); Triglycerides 154 mg/dL (<150)
[2025-07-09 09:05] LABS: Hemoglobin A1C 4.9 % (<5.7)
[2025-07-09 09:31] LABS: Thyroid Stimulating Hormone Reflex 1.110 uIU/mL (0.465-4.68)
== END 2025-07-09 08:23 | disposition home or self-care (01) ==
LOC: CHSLAB 08:22
PROVIDERS: PCP Family Medicine; Visit Provider Nurse Practitioner Family
DX: E78.5 Hyperlipidemia, unspecified (principal); Z13.1 Encounter for screening for diabetes mellitus; I10 Essential (primary) hypertension
CPT/HCPCS: 36415; 80053; 80061; 83036; 84443; 85025

== ENCOUNTER 2025-08-09 11:11 | Outpatient (CLI) | payer MEDICARE, SELFPAY ==
--- NOTE | ~2025-08-09 | XR_ITS ---
EXAMINATION: XR chest 2V, 08/09/2025 11:15 CDT HISTORY: Cough, congestion, cold x1 week COMPARISON: No comparisons available. Technique: 2 views obtained. Findings: The lungs are clear, no effusion. No pneumothorax. Heart is normal size. Mediastinal and hilar contours are within normal limits. Bony thorax no acute abnormality. Impression: No acute cardiopulmonary abnormality. Reviewed, dictated and finalized at location P. Impression: No acute cardiopulmonary abnormality.
--- OUTSIDE RECORDS SUMMARY | 2025-08-09 11:29 | XMS_ITS | Clinical Summary ---
Author Organization [facility] [employer] Address [address] [email or web address] [address] Care Team Providers Care Box Person Name Role Phone Saul Torres MD Unavailable [phone] Destin Connors DO Primary Care Provider Allergies [...] 2 (two) times a day 4 Active jooazzpv-nef-wi on-FA-vit K-lut 8 mg iron-400 mcg-50 mcg [...] 11/23/2023 Assessment & Plan (12/11/2024 11:37 AM HEALTH CARE COACH): Nasal cavity looks pretty good on both sides. Probably dealing with an upper respiratory infection or sinusitis. I recommended that she continue with the Xhance. It appears to be helping a great deal. Assessment & Plan (11/28/2023 6:47 PM HEALTH CARE COACH): Her nasal airway looks pretty good. I [...] months. Assessment & Plan (08/29/2023 1:30 PM HEALTH CARE COACH): Endoscopically she does have some evidence of [...] her. I told her to contact our plant changer for this and she is going to [...] also discussed potentially referring her to a gas examiner. She would rather not do that. She would like to pursue endoscopic sinus surgery again. Has no questions. Assessment & Plan (12/11/2024 11:36 AM HEALTH CARE COACH): She has some discharge coming from the [...] changed. Assessment & Plan (11/28/2023 6:48 PM HEALTH CARE COACH): Endoscopically her sinuses look okay. Everything appears to be pretty open without significant abnormal discharge. I am recommending continue with the Xhance. Call if she has any problems with infection. Otherwise the plan is for a follow-up in about 6 months. Assessment & Plan (08/29/2023 1:19 PM HEALTH CARE COACH): I am recommending continued observation. Symptomatically she [...] ANTERIOR ETHMOIDECTOMY; Surgeon: Saul Torres MD; Location: [facility]PER[facility]; Service: Otolaryngology; Laterality: Bilateral; [...] on file Legal Sex Female 8:17 PM HEALTH CARE COACH Gender Identity Not on file Sexual Orientation [...] 06/03/2015, 12/29/2006 Medical Devices Implanted Type Area Oracle Scm Consultant Device Identifier Shelf Expiration Date Model / Serial / Lot Plate Plate Bilateral : Neck Description:Plate in back 20 Bilateral Knee Replacements Bilateral : Knee Insurance [facility] MEDICARE ADVANTAGE MEDICARE [facility] [place] [address] Care Teams Box Person Relationship Specialty Start Date End Date Destin Connors DO [address] [place] [address] PCP - General Family Medicine 02/15/25 Saul Torres MD [address] [place] [address] Consulting Physician Otolaryngology 05/23/23
--- OUTSIDE RECORDS SUMMARY | 2025-08-09 11:29 | XMS_ITS | Encounter Summary ---
Author Organization [facility] Address [address] [place] [address] Care Team Providers Care Grounds Worker Name Role Phone Dedra Liang DO Primary Care Provider [phone] Jeanmarie Mcmullen MD Unavailable Saul Torres MD Unavailable [phone] Destin Connors DO Primary Care Provider [phone] Encounter Details Date Type Department Care Team (Late st Contact Info) Description 09/28/2017 RX Orders Only [facility] [place] [address] Yobani Vazquez, [facility] Social History Tobacco Use Types Packs/Day Years Used Date Smoking Tobacco: Former Cigarettes 1 5 1 989 - 1993 Smokeless Tobacco: Never Comments:smoked off and on f or about 5 years overall Alcohol Use Standard Drinks/Week Comments No 0 (1 standard drink = 0.6 oz pur e alcohol) Comments No Sex and Gender Information Value Date Recorded Sex Assigned at Female 11/22/2024 8:59 AM FIXED WING AIRCRAFT FLIGHT MECHANIC Legal Sex Female 9:49 PM CDT Gender Identity Not on file Sexual Orientation Not on file documented as of this encounter Plan of Treatment Upcoming Encounters Date Type Department Care Team (Late Contact Info) Description 11/18/2025 10:20 AM FIXED WING AIRCRAFT FLIGHT MECHANIC Office Visit [facility] Medical [facility] Multispecialty Care - [facility] [address] [place] [address] Tony Souza DO [address] [place] [address] documented as of this encounter Visit Diagnoses Not on filedocumented in this encounter Additional Health Concerns Infection Onset Date Last Indicated Resolved Time COVID-19 Rule Out 08/17/2020 08/17/2020 08/18/2020 1:56 PM FIXED WING AIRCRAFT FLIGHT MECHANIC COVID-19 Rule Out 03/20/2021 03/20/2021 03/21/2021 2:56 PM CDT documented as of this encounter Care Teams Grounds Worker Relationship Specialty Start Date End Date Dedra Liang DO [address] [place] [address] PCP - General FAMILY PRACTICE 09/21/17 05/07/24 Destin Connosr DO [address] [place] [address] PCP - General FAMILY PRACTICE 05/08/24 Jeanmarie Mcmullen MD [facility] [address] [place] [address] [place] Structural Iron Erector CARDIOVASCULAR DISEASE 09/21/17 [facility] [address] [place] [address] Referring Physician OTOLARYNGOLOGY 09/21/17 documented as of this encounter
--- OUTSIDE RECORDS SUMMARY | 2025-08-09 11:29 | XMS_ITS | Encounter Summary ---
Author Organization [facility] Address [address] [place] [address] Care Team Providers Care Woodyard Operator Name Role Phone Dedra Liang DO Primary Care Provider [phone] Jeanmarie Mcmullen MD Unavailable Saul Torres MD Unavailable [phone] Destin Connors DO Primary Care Provider [phone] Encounter Details Date Type Department Care Team (Late st Contact Info) Description 03/12/2018 Hospital Follow-up Call [facility] [place] [address] Tasia Castillo, [facility] [place] [address] Social History Tobacco Use Types Packs/Day Years [...] Sex Assigned at Female 11/22/2024 8:59 AM FIELD IRRIGATION WORKER Legal Sex Female 9:49 PM CDT Gender Identity Not on file Sexual Orientation Not on file Occupation Industry Job Start Date Job End Date Not on file Not on file Not on file Not on file documented as of this encounter Plan of Treatment Upcoming Encounters Date Type Department Care Team (Late st Contact Info) Description 11/18/2025 10:20 AM FIELD IRRIGATION WORKER Office Visit [facility] Medical Group Multispecialty Care - [facility] [address] [facility] [address] [place] [address] SouzaTony kilpatrick [address] [facility] [address] [place] [address] documented as of this encounter Visit Diagnoses Not on filedocumented in this encounter Additional Health Concerns Infection Onset Date Last Indicated Resolved Time COVID-19 Rule Out 08/17/2020 08/17/2020 08/18/2020 1:56 PM FIELD IRRIGATION WORKER COVID-19 Rule Out 03/20/2021 03/20/2021 03/21/2021 2:56 PM CDT documented as of this encounter Care Teams Woodyard Operator Relationship Specialty Start Date End Date Dedra Liang DO [address] [place] [address] PCP - General FAMILY PRACTICE 09/21/17 05/07/24 Destin Connors DO [address] [place] [address] PCP - General FAMILY PRACTICE 05/08/24 Jeanmarie Mcmullen MD [address] [facility] [address] [place] [address] Turner A Class Lineman CARDIOVASCULAR DISEASE 09/21/17 Saul Torres MD [facility] [address] [place] [address] Referring Physician OTOLARYNGOLOGY 09/21/17 documented as of this encounter
--- OUTSIDE RECORDS SUMMARY | 2025-08-09 11:29 | XMS_ITS | Encounter Summary ---
Author Organization [facility] Address [address] [place] [address] Care Team Providers Care Electrogalvanizing Machine Operator Name Role Phone Garth Dedra S DO Primary Care Provider [phone] Jeanmarie Mcmullen MD Unavailable Saul Torres MD Unavailable [phone] Destin Connors DO Primary Care Provider [phone] Encounter Details Date Type Department Care Team (Late st Contact Info) Description 03/17/2019 Abstract [facility] CONVERSION [address] [place] [address] , Generic Conversion, Social History Tobacco Use Types Packs/Day Years Used Date Smoking Tobacco: Former Cigarettes 1 5 1 989 - 1994 Smokeless Tobacco: Never Comments:smoked off and on f or about 5 years overall Alcohol Use Standard Drinks/Week Comments No 0 (1 standard drink = 0.6 oz pur e alcohol) Comments No Sex and Gender Information Value Date Recorded Sex Assigned at Female 11/22/2024 8:59 AM VP PURCHASING Legal Sex Female 9:49 PM CDT Gender Identity Not on file Sexual Orientation Not on file Occupation Industry Job Start Date Job End Date Not on file Not on file Not on file Not on file documented as of this encounter Plan of Treatment Upcoming Encounters Date Type Department Care Team (Late Contact Info) Description 11/18/2025 10:20 AM VP PURCHASING Office Visit [facility] Medical Group Multispecialty Care - [address], [address] [place] [address] Tony Souza DO [address] [place] [address] documented as of this encounter Visit Diagnoses Not on filedocumented in this encounter Additional Health Concerns Infection Onset Date Last Indicated Resolved Time COVID-19 Rule Out 08/17/2020 08/17/2020 08/18/2020 1:56 PM VP PURCHASING COVID-19 Rule Out 03/20/2021 03/20/2021 03/21/2021 2:56 PM CDT documented as of this encounter Care Teams Electrogalvanizing Machine Operator Relationship Specialty Start Date End Date Dedra Liang DO [address] [place] [address] PCP - General FAMILY PRACTICE 09/21/17 05/07/24 Destin Connors DO [address] [place] [address] PCP - General FAMILY PRACTICE 05/08/24 Jeanmarie Mcmullen MD [facility] [address] [place] [address] [place] Continuous Process Rotary Drum Tanner CARDIOVASCULAR DISEASE 09/21/17 Saul Torres MD [facility] [address] [place], [place] [address] Referring Physician OTOLARYNGOLOGY 09/21/17 documented as of this encounter
--- OUTSIDE RECORDS SUMMARY | 2025-08-09 11:29 | XMS_ITS | Clinical Summary ---
Author Organization [facility] Address [address] [place] [address] Care Team Providers Care Geothermal Operating Engineer Name Role Phone Jeanmarie Mcmullen MD Unavailable Saul Torres MD Unavailable [phone] Destin Connors DO Primary Care Provider [phone] Allergies Active Allergy Reactions Criticality Noted Date Comments Gabapentin Nausea Only 03/28/2025 And lightheaded Medications Biotin 5000 MCG CapIndications:S upplement Take 1 tablet by mouth daily. Indications: Supplement Hold for surgery 6 Active vitamin C 500 MG tabletIndication s:Supplement Take 1 tablet by mouth daily. Indications: Supplement Active calcium, elemental, 600 MG tabletIndication s:Supplement [The details of the medication are not available because there are pending changes by a home health clinician.] 60 tablet 4 0 Active Additional Information Patient taking differently:600 mg OralDaily, Reported on 06/06/2025 ketoconazole (NIZORAL) 2 % creamIndications :Rash, Itching to [place] [The details of the medication are not available because there are pending changes by a home health clinician.] 60 g 3 Active Additional Information Patient taking differently:TopicalPRN, Reported on 06/06/2025 meclizine (ANTIVERT) 25 MG tabletIndication s:Dizziness Take 1 tablet (25 mg total) by mouth 3 (three) times daily as needed. 90 tablet 3 Active hydrocortisone 2.5 % creamIndications :Itching [The details of the medication are not available because there are pending changes by a home health clinician.] 28 g 1 3 Active Additional Information Patient taking differently:TopicalPRN, Reported on 06/06/2025 verapamil (CALAN SR) 240 MG ER tabletIndication s:Hypertension TAKE 1 TABLET DAILY 90 tablet 1 3 Active furosemide (LASIX) 20 MG tabletIndication s:Fluid Retention TAKE 1 TABLET BY MOUTH EVERY DAY 90 tablet 1 3 Active rOPINIRole (REQUIP) 0.25 MG tabletIndication s:Myalgia/Muscle Spasms [The details of the medication are not available because there are pending changes by a home health clinician.] 90 tablet 2 4 Active Additional Information Patient taking differently:0.25 mg Oral Every evening,Indications: RLS, Reported on 06/06/2025 cilostazol (PLETAL) 100 MG tabletIndication s:Intermittent Claudication Take 1 tablet by mouth 2 (two) times daily. Indications: Leg Pain when Walking which is Absent at Rest 4 Active Multiple Vitamins-Mineral s (CENTRUM SILVER 50+WOMEN OR)Indications:S upplement Take 1 tablet by mouth daily. Indications: Supplement 4 Active simvastatin (ZOCOR) 80 MG tabletIndication s:Hyperlipidemia Take 1 tablet by mouth nightly at bedtime. Indications: High Amount of Fats in the Blood Active lisinopril (PRINIVIL) 20 MG tabletIndication s:Hypertension Take 1 tablet by mouth daily. Indications: High Blood Pressure 4 Active fluticasone propionate (FLONASE) 50 MCG/ACT nasal sprayIndications :Allergic Rhinitis [The details of the medication are not available because there are pending changes by a home health clinician.] 16 g 6 5 Active Additional Information Patient taking differently:1 spray Nasal2 times daily, Reported on 06/06/2025 polycarbophil (FIBERCON) 625 MG tabletIndication s:Fiber Supplement Take 1 tablet by mouth. Indications: Fiber Supplement Active Active Problems Problem Noted Date Diagnosed Date S/P lumbar laminectomy 04/10/2025 Foraminal stenosis of lumbar region 02/11/2025 Sacroiliitis 02/11/2025 Breast pain, left 08/24/2023 External hemorrhoid 08/24/2023 Lower leg edema 06/22/2023 Dysuria 05/11/2023 Cubital tunnel syndrome, unspecified laterality 12/15/2022 Carpal tunnel syndrome, unspecified laterality 0 12/15/2022 Numbness and tingling in both hands 11/02/2022 Myalgia 10/14/2022 Paresthesia 10/14/2022 Chronic sinusitis, unspecified location 10/14/19 23 Muscle strain 01/22/2022 HERBER on CPAP 09/16/2021 History of pulmonary embolism 09/16/2021 Morbid obesity 09/16/2021 Other muscle spasm 02/10/2021 Myofascial neck pain 09/22/2020 Gastroesophageal reflux disease without esophagi tis 06/21/2019 History of fusion of cervical spine 05/14/2019 Osteoarthritis, knee 11/14/2018 Lower extremity edema 02/28/2018 Overview (09/26/2020): Description: improved with diuretic Allergic rhinitis 01/20/2017 Irritable bowel syndrome 05/02/2013 Degenerative arthritis 05/02/2013 HLD (hyperlipidemia) Hypertension Overview (01/18/2018): HTN, high cholesterol Resolved Problems Problem Noted Date Diagnosed Date Resolved Date Degeneration of intervertebr al disc of lumbar region with discogenic back pain and lower extremity pain 04/11/2025 04/25/2025 Spinal stenosis of lumbar re gion with neurogenic claudication 02/11/2025 04/25/2025 Radiculopathy, lumbar region 02/11/2025 04/25/2025 Preventative health care 01/11/202307/2023 Preventative health care 09/16/2021 Acute pulmonary embolism, un specified pulmonary embolism type, unspecified whether acute cor pulmonale present 10/27/2020 09/16/2021 Hospital discharge follow-up 09/26/2020 09/29/2020 Acute pulmonary embolism wit hout acute cor pulmonale, unspecified pulmonary embolism type 09/26/2020 09/16/2021 Cervical radiculopathy 08/20/202002/11 Cervical spine instability 08/20/2020 0 05/13/2022 Spondylolisthesis, cervical region 08/20/2020 02/11/2025 Degenerative disc disease, cervical 08/20/2020 02/11/2025 Encounter for screening mamm ogram for malignant neoplasm of breast 07/15/2020 07/21/2020 Preventative health care 07/15/202009/2020 Foraminal stenosis of cervical region 07/06/2019 02/11/2025 Screening for breast cancer 06/21/2019 06/20/2020 Breast cancer screening by mammogram 06/21/2019 06/20/2020 Pseudoarthrosis of cervical spine 05/14/2019 02/11/2025 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 02/12/2018 05/13/2022 Cervical stenosis of spinal canal 02/08/2018 10/11/2019 Tubular adenoma of colon 10/25/201401/2022 Encounters Date Type Department Care Team Description 06/17/2025 Scan [facility] INFO SRVCS Scanned, Doc Med Group 06/06/2025 3:20 PM CDT Office Visit [facility] - [address], [address] [place] [address] Matilda Bolton, ZOFIA Follow Up (04/10/2025: L 3, L 4 Lami//Clinical F/U: /) 06/06/2025 Travel from Last 3 Months Immunizations Immunization Administration Dates Next Due Dtap (Generic) 05/03/2013 Fluzone High Dose (IIV, triv alent, 0.5mL) 07/13/2019,06/20/2018,06/21/2017,2015,07/03/2015 Fluzone High Dose - >Age 65 (Prefilled Syringe) 07/11/2022,07/13/2019,06/20/2018,2016,07/08/2016,07/03/2015 Influenza (Generic) 07/16/2020,06/25/2013 Influenza Adult (Generic) 07/08/2021,04/2020,06/25/2014,2012 Pneumococcal (Pneumovax 23) 12/29/2006 Pneumococcal (Prevnar 13) 06/20/2018,06/03/2015 Shingrix 06/28/2023,04/25/2023 Td (Tenivac) preservative free 10/10/2000 Tdap (Generic) 05/03/2013 Zoster (Zostavax) 68497 Unt/0.65Ml 02/26/2009 Family History Medical History Relation Comments Hypertension Father Breast Cancer Maternal Aunt 1 age 50-60 Cancer Maternal Aunt 1 Breast Cancer Maternal Aunt 2 age 50-60 Cancer Maternal Grandmother Cancer Maternal Uncle Arthritis Mother Cancer Mother Heart Disease Mother Hypertension Mother Cancer Sister 3 Cancer Sister 4 Relation Status Comments Father (Age 75) in sleep Maternal Aunt 1 Maternal Aunt 2 Maternal Grandmother Alive Maternal Uncle Alive Mother (Age 72) colon cancer Sister 1 (Age 72) colon cancer Sister 2 Alive Sister 3 Alive Sister 4 Alive Social History Tobacco Use Types Packs/Day Years Used Date Smoking Tobacco: Former Cigarettes 1 5 1 9 - 1993 Passive Smoke Exposure: Past Smokeless Tobacco: Never Tobacco Cessation:Counseling Given: Yes Comments:smoked off and on for about 5 years overall Alcohol Use Standard Drinks/Week Comments Not Currently 2 (1 standard drink = 0.6 oz pur e alcohol) OASIS D0700: Social Isolation Answer Da te Recorded Frequency of experiencing loneliness or isolatio n Never 05/01/2025 OASIS A1250: Transportation Answer Date Recorded Lack of Transportation (Medical) No 05/01/2025 Lack of Transportation (Non-Medical) No 05/01/2025 Patient Unable or Declines to Respond No 05/01/2025 OASIS B1300: Health Literacy Answer Arturo e Recorded Frequency of needing help to read materials from doctor or pharmacy Never 05/01/2025 PHQ-2 Answer Date Recorded Patient Health Questionnaire-2 Score 0 11/07/2024 Comments No Sex and Gender Information Value Date Recorded Sex Assigned at Female 11/22/2024 8:59 AM ANVILSMITH Legal Sex Female 9:49 PM CDT Gender Identity Not on file Sexual Orientation Not on file Occupation Industry Job Start Date Job End Date Not on file Not on file Not on file Not on file Last Filed Vital Signs Vital Sign Reading Time Taken Comments Blood Pressure 124/62 06/06/2025 3:11 PM CDT Pulse 69 06/06/2025 3:11 PM CDT Temperature 36.9 C (98.4 F) 06/06/2025 3:11 PM CDT Respiratory Rate 18 06/06/2025 3:11 PM CDT Oxygen Saturation 95% 06/06/2025 3:11 PM CDT Inhaled Oxygen Concentration - - Weight 93 kg (205 lb) 06/06/2025 3:11 PM CDT Height 167.6 cm (5' 6) 06/06/2025 3:11 PM CDT Body Mass Index 33.09 06/06/2025 3:11 PM CDT Plan of Treatment Upcoming Encounters Date Type Department Care Team (Late st Contact Info) Description 11/18/2025 10:20 AM ANVILSMITH Office Visit [facility] Mult[facility]pecialty Care - [facility] [address] [place] [id number] Tony Souza DO [address] [place] [address] Health Maintenance Due Date Last Done Comments Dexa Scan (General) 2006 RSV Immunization or 60+ Years (1 - 1-dose 75+ series) 2016 DTaP, Tdap and Td Vaccines (3 - Td or Tdap) 05/03/2023 05/03/2013, 05/03/2013, 10/10/2000 Annual Medicare Wellness Visit 01/13/2024 01/11/2023 COVID-19 Vaccine ( season) 2025 07/08/2021, 12/02/2020, 11/11/2020 Influenza Adult (#1) 2025 07/16/2024, 07/11/2022, 07/08/2021, Additional history exists Pneumococcal Vaccine: 50+ Years Completed 06/20/2018, 06/03/2015, 12/29/2006 Zoster Vaccines Completed 06/28/2023, 04/09, 02/26/2009 PHQ-2 (Physician [place]) Completed 11/07/2024 Hepatitis A Vaccines Aged Out No long er eligible based on patient's age to complete this topic Meningococcal B Vaccine Aged Out No l onger eligible based on patient's age to complete this topic Meningococcal Vaccine Aged Out No cricket vitaly eligible based on patient's age to complete this topic RSV Immunizations Under 20 Months Aged Out No longer eligible based on patient's age to complete this topic Goals Goal Patient Goal Type Associated Problems Recent Progress Patient-Stated? Author Family - family caregiver with be involved in care transitions and discharge planning Lifestyle No Kevin Britton RN Medical Devices Implanted Type Area Finished Goods Inspector Device Identifier Shelf Expiration Date Model / Serial / Lot Putty Faulk Matrix Dbm/Dbf Bone 1cc - [id number] Implanted:Qty: 1 on 02/08/2018 by Devaughn Butler MD at [facility] Bone N/A: Spine Cervical [employer] 07/12/2019 [id number] / / [id number] Mastergraft Sofamor Danek 10ml - [id number] Implanted:Qty: 1 on 08/20/2020 by Devaughn Butler MD at [facility] Bone N/A: Spine Cervical [employer] 09/08/2022 [id number] / / [id number] Graft Infuse Bone Large Ii - [id number] Implanted:Qty: 1 on 08/20/2020 by Devaughn Butler MD at [facility] Bone N/A: Spine Cervical [employer] 05/10/2021 [id number] / / [id number] Plate Implanted:Qty: 1 on 02/08/2018 by Devaughn Butler MD at [facility] Plate N/A: Spine Cervical INDIGO SPINE - DIV INDIGO KAVIN [id number] / / Screws Implanted:Qty: 1 on 02/08/2018 by Devaughn Butler MD at [facility] Screw N/A: Spine Cervical INDIGO SPINE - DIV INDIGO KAVIN [id number] / / Screw Biased Indigo Oasys 3.5 X 14mm - [id number] Implanted:Qty: 8 on 08/20/2020 by Devaughn Butler MD at [facility] Screw N/A: Spine Cervical INDIGO SPINE - DIV INDIGO KAVIN [id number] / / Description:C3-C7 4.0x24mm Medial Bias Screw Implanted:Qty: 2 on 08/20/2020 by Devaughn Butler MD at [facility] Screw N/A: Spine Cervical INDIGO SPINE - DIV INDIGO KAVIN [id number] / / Description:T1 Mode Indigo Oasys - [id number] Implanted:Qty: 10 on 08/20/2020 by Devaughn Butler MD at [facility] Screw N/A: Spine Cervical INDIGO SPINE - DIV INDIGO KAVIN [id number] / / Stent Propel 23mm - [id number] Implanted:Qty: 1 on 09/28/2017 by Saul Torres MD at [facility] Stent Left: Nose INTERSECT ENT 06/10/2019 [id number] / / [id number] Stent Propel 23mm - [id number] Implanted:Qty: 1 on 09/28/2017 by Saul Torres MD at [facility] Stent Right: Nose INTERSECT ENT 06/10/2019 [id number] / / [id number] Propel Contour Implanted:Qty: 1 on 09/28/2017 by Saul Torres MD at [facility] Left: Nose INTERSECT ENT 05/10/2018 / / [id number] Propel Contour Implanted:Qty: 1 on 09/28/2017 by Saul Torres MD at [facility] Right: Nose INTERSECT ENT 05/10/2018 [id number] / / [id number] Duramatrix Implanted:Qty: 1 on 02/08/2018 by Devaughn Butler MD at [facility] N/A: Spine Cervical INDIGO CRANIOMAXILLOFACIAL - DIV INDIGO CO 06/09/2019 [id number] / / [id number] Cervical Interbody Implanted:Qty: 2 on 02/08/2018 by Devaughn Butler MD at [facility] N/A: Spine Cervical SE[employer]INE 05/06/2022 [id number] / / [id number] 70mm Crow Implanted:Qty: 2 on 08/20/2020 by Devaughn Butler MD at [facility] N/A: Spine Cervical INDIGO SPINE - DIV INDIGO KAVIN [id number] / / Description:C3-T1 Explanted Type Area Finished Goods Inspector Device Identifier Shelf Expiration Date Model / Serial / Lot Distration Pin 12mm - [id number] Explanted:Qty: 1 on 02/08/2018 at [facility] Pin N/A: Spine Cervical [employer] DP-12-TB / / Distration Pin 12mm - [id number] Explanted:Qty: 1 on 02/08/2018 at [facility] Pin N/A: Spine Cervical [employer] DP-12-TB / / Insurance [facility] MEDICARE Advance Directives Documents on File Type Date Recorded Patient Cemetery Worker Expl anation Legal Documents 09/05/2020 Office conse nts * Full Code (Latest Code Status on File) Date Activated Date Inactivated Comments 04/17/2025 2:31 PM * Full Code Date Activated Date Inactivated Comments 04/10/2025 1:57 PM 04/11/2025 1:33 PM * Full Code Date Activated Date Inactivated Comments 08/20/2020 4:58 PM 08/22/2020 3:19 PM * Full Code Date Activated Date Inactivated Comments 02/12/2018 11:27 AM 02/16/2018 3:38 PM * Full Code Date Activated Date Inactivated Comments 02/12/2018 11:17 AM 02/12/2018 11:27 AM Care Teams Geothermal Operating Engineer Relationship Specialty Start Date End Date Destin Connors DO [address] [place] [address] PCP - General FAMILY PRACTICE 05/08/24 Jeanmarie Mcmullen MD Three [facility]. [address] [place] [address] [place] [facility] Management Consultant CARDIOVASCULAR DISEASE 09/21/17 Saul Torres MD Three [facility]. [address] [place] [address] Referring Physician OTOLARYNGOLOGY 09/21/17
--- OUTSIDE RECORDS SUMMARY | 2025-08-09 11:29 | XMS_ITS | Encounter Summary ---
Author Organization [facility] Address [address] [place] [address] Care Team Providers Care Fusion Operator Name Role Phone Jeanmarie Mcmullen MD Unavailable Saul Torres MD Unavailable [phone] Destin Connors DO Primary Care Provider [phone] Encounter Details Date Type Department Care Team (Latest Contact Info) Description 03/14/2025 Conscious Box Message Enc [facility] Group Multispecialty Care - [address], [address] [place] [address] [employer], [facility] Provider Pre-Op Instructions/Educat ion Social History Tobacco Use Types Packs/Day Years Used Date Smoking Tobacco: Former Cigarettes 1 5 1 989 - 1993 Smokeless Tobacco: Never Comments:smoked off and on f or about 5 years overall Alcohol Use Standard Drinks/Week Comments Yes 2 (1 standard drink = 0.6 oz pur e alcohol) PHQ-2 Answer Date Recorded Patient Health Questionnaire-2 Score 0 11/07/2024 Comments No Sex and Gender Information Value Date Recorded Sex Assigned at Female 11/22/2024 8:59 AM ROD BUSTER HELPER Legal Sex Female 9:49 PM CDT Gender Identity Not on file Sexual Orientation Not on file Occupation Industry Job Start Date Job End Date Not on file Not on file Not on file Not on file documented as of this encounter Functional Status * RETIRED Are you deaf or do you have serious difficulty hearing Answer Date of Assessment Author Status No 08/20/2020 5:28 PM ROD BUSTER HELPER Activ e * RETIRED Are you blind or do you have serious difficulty seeing, even when wearing glasses? Answer Date of Assessment Author Status No 08/20/2020 5:28 PM ROD BUSTER HELPER Activ e * Do you have serious difficulty walking or climbing stairs? Answer Date of Assessment Author Status No 08/20/2020 5:28 PM ROD BUSTER HELPER Marjan Fulton RN Active * Do you have difficulty dressing or bathing? Answer Date of Assessment Author Status No 08/20/2020 5:28 PM ROD BUSTER HELPER Marjan Fulton RN Active * Because of a physical, mental, or emotional condition, do you have difficulty doing errands alone such as visiting a doctor's office or shopping? Answer Date of Assessment Author Status No 08/20/2020 5:28 PM ROD BUSTER HELPER Marjan Fulton RN Active documented as of this encounter Mental Status * Because of a physical, mental, or emotional condition, do you have serious difficulty concentrating, remembering, or making decisions? Answer Entry Date Author Status No 08/20/2020 5:28 PM ROD BUSTER HELPER Marjan Fulton RN Active documented in this encounter Plan of Treatment Upcoming Encounters Date Type Department Care Team (Late st Contact Info) Description 11/18/2025 10:20 AM ROD BUSTER HELPER Office Visit [facility] Mult[facility]pecialty Care - [facility] [address] [place] [address] Tony Souza DO [address] [place] [address] documented as of this encounter Visit Diagnoses Not on filedocumented in this encounter Additional Health Concerns Assessment Noted Time PHQ-9 Depression Total Score: 0 09/16/20 21 10:06 AM ROD BUSTER HELPER documented as of this encounter Care Teams Fusion Operator Relationship Specialty Start Date End Date Destin Connors DO [address] [place] [address] PCP - General FAMILY PRACTICE 05/08/24 Jeanmarie Mcmullen MD Three [facility]. [address] [address] [place] Multicut Line Operator CARDIOVASCULAR DISEASE 09/21/17 Saul Torres MD Three [facility]. [address] [address] Referring Physician OTOLARYNGOLOGY 09/21/17 documented as of this encounter
== END 2025-08-09 11:12 | disposition home or self-care (01) ==
LOC: CHSIMG 11:12
PROVIDERS: PCP Family Medicine; Visit Provider Family Medicine
DX: R05.9 Cough, unspecified (principal)
CPT/HCPCS: 71046

== ENCOUNTER 2025-08-28 00:06 | Emergency (ER) | payer MEDICARE, SELFPAY ==
--- NOTE | ~2025-08-28 | CT_ITS ---
EXAMINATION: CT soft tiss nk chst ab pel w DATE: 08/28/2025 01:58 INDICATION: Cough. Cervical adenopathy. Nausea. TECHNIQUE: Computed tomography (CT) of the neck, chest, abdomen, and pelvis was performed with 100 mL Omnipaque 350 intravenous contrast. Automated exposure control and iterative reconstruction technique were employed. The dose-length product was 1814.47 mGy-cm. COMPARISON: Chest CT 09/23/2020, CT abdomen and pelvis 09/23/2020 FINDINGS: NECK CT: There are likely changes of ocular lens replacement surgeries. There are no pathologically enlarged lymph nodes. The pharynx and larynx are normal. There are changes of anterior fusion procedure from C4 to C6. There is severe cervical spondylosis. There are changes of posterior fusion procedure from C2 to T1 with instrumentation. CHEST CT: The lungs demonstrate mild atelectasis. There is a pneumatocele in left lower lobe. No pleural effusion. The heart size is normal. There are coronary artery calcifications. No pericardial effusion. There are calcifications of the aortic valve. There is a small sliding hiatal hernia. There is severe upper thoracic spondylosis. ABDOMEN/PELVIS CT: There is a 10 mm cyst in the liver. The gallbladder is normal in size and contains gallstones. Calcifications in the spleen are consistent with old granulomatous disease. The pancreas and adrenal glands are normal. There is cortical thinning of the kidneys. 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 There is a 2.2 cm cyst in left kidney. There is diverticulosis of the colon without evidence of diverticulitis. There are no dilated loops of bowel. The appendix is not visualized. There is calcified atherosclerosis of the aorta and many of the other arteries. There are no pathologically enlarged lymph nodes. There is no free intraperitoneal fluid. There is severe lower lumbar spondylosis. IMPRESSION: 1. Small sliding hiatal hernia. Reviewed, dictated and finalized at location E. ING ATTENDANT
--- NOTE | ~2025-08-28 | XR_ITS ---
EXAMINATION: XR chest 1V portable DATE: 08/28/2025 01:00 INDICATION: Cough TECHNIQUE: A single frontal view of the chest was obtained. COMPARISON: August 09 chest x-ray FINDINGS: Slight elevation of left hemidiaphragm with mild left basilar atelectatic changes and small infiltrate difficult to exclude confidently. Remaining lung calderón are clear. Heart shadow normal. Partially visualized cervical fusion hardware. No pneumothorax or subphrenic free air seen. IMPRESSION: 1. Mildly obscured left lung base with mild atelectatic changes and/or small infiltrate possibly present. Reviewed, dictated and finalized at location A. ET INSTALLER HELPER IMPRESSION: 1. Mildly obscured left lung base with mild atelectatic changes and/or small in filtrate possibly present.
[2025-08-28 00:08] VITALS: BP 154/87; PULSE 115; RESP 16; TEMP 36.6; O2SAT 94
[2025-08-28] MEDS: ONDANSETRON INJ 4 MG/2 ML VIAL IV PUSH ×2 (00:27→02:00)
[2025-08-28] MEDS: MORPHINE SULFATE (*CRX) 4 MG/ML INJ IV PUSH (00:27)
--- NOTE | 2025-08-28 00:41 | ED.GENADULT ---
HPI - General Adult General Chief complaint: Unspecified Stated complaint: Excessive Cough Time Seen by Provider: 08/28/25 00:17 History of Present Illness HPI narrative: 85-year-old white female with history of GERD, hypertension, hyperlipidemia, anterior cervical adenopathy of the neck, chronic back pain, presents with about 2-3 month history persistent coughing. He reports it has not been productive, and at times will develope 15 or 20 minutes of virtually continuous coughing. Tonight she is presenting with several hours of continuous coughing. She reports that when she is talking the coughing stops prednisone she stops talking the coughing restarts. He acknowledges being on lisinopril, and so far this has not been discontinued. She is a former heavy smoking history but stopped about 25 years ago. She has had a recent ultrasound of her neck, and she is scheduled to get an MRI in the next week or 2. She denies any recent fever or chills, sinus drainage, her throat is sore from coughing, denies palpitations, near syncope or syncope. Denies abdominal pain, nausea vomiting, diarrhea or constipation, dysuria urgency or frequency. Related Data Home Medications ?Medication ?Instructions ?Recorded ?Confirmed ?Last Taken ?Type calcium 600 mg (as carbonate)-vit 1 tablet PO BID 10/31/19 08/29/25 05/22/24 History D3 10 mcg (400 unit) chewable tablet (Calcium 600 with Vitamin D3) docusate sodium 100 mg capsule 100 mg PO BID PRN Constipation 10/31/19 08/29/25 05/22/24 History biotin 5,000 mcg disintegrating 10,000 mcg PO DAILY 05/20/20 08/29/25 05/22/24 History tablet fluticasone furoate 27.5 1 spray intranasal DAILY PRN 05/20/20 08/29/25 05/22/24 History mcg/actuation nasal Congestion spray,suspension meclizine 25 mg tablet 25 mg PO BID PRN Vertigo 05/20/20 08/29/25 05/22/24 History gqyqqubb-ssgzevx-qaam-lutein tablet tablet PO 01/04/24 08/29/25 05/22/24 History ascorbic acid (vitamin C) 1,000 mg 1 g PO DAILY 04/25/24 08/29/25 05/22/24 History capsule Allergies Allergy/AdvReac Type Severity Reaction Status Date / Time gabapentin Allergy Mild Nausea Verified 08/29/25 10:25 Review of Systems Review of Systems: ROS is negative except as in [facility] Past Medical History Medical History Arterial occlusive disease GERD (gastroesophageal reflux disease) Hypertension Hyperlipidemia Adult BMI 34.0-34.9 kg/sq m BMI 26.0-26.9,adult Surgical History Surgical History History of arthroscopy of left knee May 2020 - peripatellar debridement History of bilateral knee replacement History of knee replacement procedure of right knee 08/12/11 History of sinus surgery 10/01/17 History of back surgery Back disc 02/08/18 History of knee replacement procedure of left knee 11/30/2018 Social History Social History Smoking status: Former smoker Tobacco type: cigarettes Smoking end date: 10/09/86 Additional smoking assessment comments: HX OF 1-1 1/2 PK/DAY/QUIT 1994 Alcohol intake: current Drinks per week: 0 Alcohol use details: occasional Substance use: never Living arrangements: with friend(s) Additional living arrangements comments: - [place] Occupation/Education: retired Gender identity (if verbalized by the patient): Female Sexual Orientation (if Verbalized by the Patient): Straight or Heterosexual Spiritual care concerns: No Exam Narrative: pleasant, somewhat anxious, well oriented, with a continuous non productive frequent cough which stops when she talks but starts back up as soon as she stops talking. It is rapid, constant she holds a Kleenex in front of her mouth the nose, appears from uncomfortable, but not toxic. There is no respiratory distress, no stridor, no wheezing, Her cough is consistent with the dry hacking cough of lisinopril, but is at higher frequency Const: General: cooperative, healthy appearing, no acute distress, well developed, alert, awake and Physically active; No comfortable Orientation/consciousness: patient oriented x3 HENMT: Head: normal to inspection, normocephalic and atraumatic Ears: hearing grossly normal bilaterally and external ears normal Face/Nose/Sinus: Normal external nose present, Normal nares present, Normal nasal mucous membranes and turbinates present and normal facial exam Face and sinus: normal facial exam Mouth: Yes Normal oral and palatal mucosa present, Yes lip normal, Yes tongue normal, Yes oropharynx normal and Yes moist mucous membranes Teeth and gingiva: dentition normal Throat: posterior oropharynx normal and tonsils normal ( erythematous) Eyes: General: appearance normal, both eyes and all related structures Alignment and Position: alignment normal and position normal Periorbital: periorbital findings normal Eyelids: eyelids normal Conjunctivae: conjunctivae normal Sclera: sclerae normal Cornea: corneas normal Pupils: Equal, round and reactive pupils present EOM: EOMs intact bilaterally Neck: Neck: normal visual inspection, full ROM and lymphadenopathy Chest: Chest palpation & inspection: normal inspection of the chest Resp: Effort & Inspection: normal respiratory effort, able to speak in complete sentences, no audible wheezes, Actively coughing, no respiratory distress, no stridor, no tracheal deviation and no use of accessory muscles Auscultation: rhonchi Cardio: Jugular venous distension: no JVD Rate: regular rate Rhythm: regular rhythm GI: Inspection: normal to inspection GI Palp: No abdominal tenderness, No Tenderness to palpation present (GI), No Guarding due to palpation present (GI), No No hepatosplenomegaly present, No Palpable mass present and No Rebound tenderness present Skin: General skin exam: normal color, no rashes or lesions noted, elasticity normal and turgor normal Neuro: General: patient oriented x3, gait normal, tone normal and moves all extremities Cranial nerves: Yes CN's II-XII intact bilaterally, Yes Equal, round and reactive pupils present and Yes Bilaterally intact EOM present Speech: normal speech Motor exam (neuro): 5/5 motor strength present throughout and Normal motor muscle tone present throughout Sensory Exam: normal sensation Extrem: General: normal to inspection, normal exam except as noted and no pedal edema Psych: Appearance: grossly normal and well kempt Mental Status: mental status grossly normal Speech and movement: Normal speech and movement present Affect: normal affect Attitude: cooperative Thought process: Normal thought process present Course Course Emergency Course: Differential diagnosis includes but is not limited to lisinopril related cough, vagus nerve irritation, aspiration, malignancy, anxiety, conversion disorder, foreign object, pneumothorax, COPD, bronchitis, pneumonia, Patient has been on doxycycline, July 08, 2025 patient had head and neck ultrasound which showed: Findings: Correlating with the palpable area in the left submandibular region the submandibular gland measures 4 x 2.5 x 1.7 cm with no abnormal flow. There are adjacent nonspecific mildly enlarged submandibular lymph nodes the largest measuring 20 x 10 mm with normal-appearing hilar and no abnormal flow IMPRESSION: 1. Nonspecific mild lymphadenopathy. Reactive and neoplastic arches can be considered. Follow-up is suggested to assess stability or resolution. Clinically if there is concern for neoplasm contrast-enhanced MRI is suggested Reviewed, dictated and finalized at location P. Patient is apparently set up for the suggestion MRI in the next week or 2 CBC today is normal CMP today is normal UA is unremarkable Patient does not have a recent CT of the neck, chest, abdomen or pelvis, and with my concern that she may be having some vagal nerve stimulation, with malignancy being of particular concern, will go ahead and obtain CT of the soft tissue of the neck, chest, abdomen, pelvis with IV contrast. Will give her 4 mg of morphine and 4 mg of Zofran to try and control her cough. May have to give a 2nd dose of morphine, or Ativan with it. If still persistent may need to use some IV Thorazine. Chest x-ray today does not show any obvious masses, pneumothorax, or infiltrate. Regardless with workup today patient will need her lisinopril discontinued. 2:[address] result is back, and it shows cholelithiasis but no significant anterior cervical adenopathy, no tonsillar enlargement, unremarkable epiglottis, and chest abdomen pelvis is unremarkable as well, This is reassuring but she will still need the MRI to follow up the ultrasound finding. I have discussed lisinopril induced cough with her, discussed the lab work and CT results with her, and and will discharge following her IV fluids Will discharge on hydrocodone cough suppressant, have cautioned her about constipation as a side effect, will have her check her blood pressures at home as she may need replacement anti hypertensive now that she will be off licinopril. Medical decision making complexity and risk was high with multiple labs an evaluation, multiple CT scans, utilization of intravenous narcotics, administration of IV fluids. Vital Signs Vital signs: Vital Signs Oxygen Delivery Room Air 08/28/25 00:06 Temperature 36.6 C 08/28/25 00:08 Pulse Rate 65 08/28/25 04:23 Respiratory Rate 18 08/28/25 04:23 Blood Pressure 134/78 08/28/25 04:23 Pulse Oximetry 94 08/28/25 04:23 Oxygen Delivery Room Air 08/28/25 04:23 Oxygen Flow Rate 2 08/28/25 02:13 Medical Decision Making Vital Signs Vital Signs: Vital Signs Oxygen Delivery Room Air 08/28/25 00:06 Temperature 36.6 C 08/28/25 00:08 Pulse Rate 65 08/28/25 04:23 Respiratory Rate 18 08/28/25 04:23 Blood Pressure 134/78 08/28/25 04:23 Pulse Oximetry 94 08/28/25 04:23 Oxygen Delivery Room Air 08/28/25 04:23 Oxygen Flow Rate 2 08/28/25 02:13 Lab Data 08/28/25 01:02 08/28/25 01:01 Labs: Lab Results 08/28/25 08/28/25 08/28/25 Range/Units 01:01 01:02 02:01 WBC 10.3 (4.8-10.8) K/mm3 RBC 4.09 L (4.20-5.40) M/mm3 Hgb 13.2 (11.7-13.8) g/dL Hct 41.3 (35.0-42.0) % MCV 101.0 (78.0-102.0) fL MCH 32.3 H (27.0-31.0) pg MCHC 32.0 (32-36) g/dL RDW 13.2 (11.6-14.4) % Plt Count 253 (150-420) K/mm3 MPV 10.0 (9.2-11.8) fl Immature Gran % (Auto) 0.3 H (0.0-0.0) % Neut % (Auto) 48.4 L (50.0-70.0) % Lymph % (Auto) 36.1 (18.0-42.0) % [place] % (Auto) 6.5 (2.0-11.0) % Eos % (Auto) 7.9 H (1.0-6.0) % Baso % (Auto) 0.8 (0.0-1.0) % Lymph # (Auto) 3.71 (1.10-4.50) K/mm3 [place] # (Auto) 0.67 (0.10-0.90) K/mm3 Eos # (Auto) 0.81 H (0.02-0.50) K/mm3 Baso # (Auto) 0.08 (0.00-0.10) K/mm3 Abs Immat Gran (auto) 0.03 H (0.00-0.00) K/mm3 Absolute Neuts (auto) 4.97 (1.70-7.20) K/mm3 Absolute Nucleated RBC 0.00 (0.00-0.00) K/mm3 Nucleated RBC % 0.0 (0-0.0) % Sodium 140 (137-145) mmol/L Potassium 3.8 (3.4-5.0) mmol/L Chloride 102 (98-107) mmol/L Carbon Dioxide 27 (22-30) mmol/L Anion Gap 11 (4-12) mmol/L BUN 21 H (7-17) mg/dL Creatinine 1.13 H (0.7-1.0) mg/dL Estim Creat Clear Calc 39 ml/min Estimated GFR 46 L (59 - ) Glucose 113 H (65-110) mg/dL Calculated Osmolality 294 (285-295) mOsm/kg Calcium 9.8 (8.4-10.2) mg/dL Total Bilirubin 0.5 (0.2-1.3) mg/dL AST 28 (14-36) U/L ALT 20 (6-35) U/L Alkaline Phosphatase 98 (38-126) U/L Total Protein 7.5 (6.3-8.2) g/dL Albumin 4.7 (3.5-5.1) g/dL Urine Color Yellow (Yellow) Urine Appearance Clear (Clear) Urine pH 6.0 (5.0-8.0) Ur Specific [place] 1.020 (1.010-1.020) Urine Protein Negative (Negative) Urine Glucose (UA) Negative (Negative) Urine Ketones Negative (Negative) Ur Blood (Man) Negative (Negative) Urine Nitrate Negative (Negative) Urine Bilirubin Negative (Negative) Urine Urobilinogen 0.2 (0.2-1.0) mg/dL Leukocyte Esterase Rfl Negative (Negative) [place]/[facility] Discharge Plan Discharge Clinical Impression: Adverse effect of lisinopril, Chronic coughing Patient Disposition: Home Condition: Improved Additional Instructions: Do not take anymore lisinopril as it is most likely been causing your cough Monitor your blood pressures twice a day, record that information and take it with you when you follow-up with your doctor. You may need a replacement hypertensive medication now that your off lisinopril. Stay well-hydrated Have the MRI as plan to follow-up the earlier abnormality noted on the ultrasound of your neck Return to the emergency department if worsens Patient Language: Greek Prescriptions: New hydrocodone-chlorpheniramine 10-8 mg/5 mL suspension,extended rel 12 hr 5 ml PO Q12H PRN (Reason: cough) Qty: 473 0RF Rx Instructions: This can cause constipation No Action Calcium 600 with Vitamin D3 600 mg(1,500mg) -400 unit tablet,chewable 1 tablet PO BID docusate sodium 100 mg capsule 100 mg PO BID PRN (Reason: Constipation) biotin 5,000 mcg tablet,disintegrating 10,000 mcg PO DAILY meclizine 25 mg tablet 25 mg PO BID PRN (Reason: Vertigo) fluticasone furoate 27.5 mcg/actuation spray,suspension 1 spray NASAL DAILY PRN (Reason: Congestion) Rx Instructions: into each nostril triamcinolone acetonide 0.5 % cream 1 applic topical BID Qty: 15 0RF albuterol-budesonide 90-80 mcg/actuation HFA aerosol inhaler 2 inh inhalation ONCE Qty: 10.7 0RF Rx Instructions: as a single dose; may repeat up to 6 doses per day (12 inhalations) amgcpsui-wzbfefc-omyb-lutein Tablet PO ascorbic acid (vitamin C) 1,000 mg capsule 1 g PO DAILY verapamil 240 mg tablet extended release 240 mg PO DAILY Qty: 90 3RF furosemide 20 mg tablet See Rx Instructions .ROUTE .COMPLEX Qty: 90 3RF Dose Instruction: TAKE 1 TABLET BY MOUTH EVERY MORNING Rx Instructions: TAKE 1 TABLET BY MOUTH EVERY MORNING simvastatin 80 mg tablet See Rx Instructions .ROUTE .COMPLEX Qty: 90 3RF Dose Instruction: TAKE 1 TABLET BY MOUTH EVERY DAY Rx Instructions: TAKE 1 TABLET BY MOUTH EVERY DAY ropinirole 0.25 mg tablet See Rx Instructions .ROUTE .COMPLEX Qty: 90 1RF Dose Instruction: TAKE 1 TABLET BY MOUTH EVERY DAY AT BEDTIME Rx Instructions: TAKE 1 TABLET BY MOUTH EVERY DAY AT BEDTIME cilostazol 100 mg tablet See Rx Instructions .ROUTE .COMPLEX Qty: 180 1RF Dose Instruction: TAKE 1 TABLET BY MOUTH TWICE A DAY Rx Instructions: TAKE 1 TABLET BY MOUTH TWICE A DAY telmisartan 40 mg tablet 40 mg PO DAILY Qty: 90 0RF Follow-up/Referrals: Destin Connors DO [Primary Care Provider, Family Practice] Time of Disposition: 02:56
[2025-08-28 01:06] LABS: Hematocrit 41.3 % (35.0-42.0); Hemoglobin 13.2 g/dL (11.7-13.8); Immature Granulocyte Percent A 0.3 % (0.0-0.0); Lymphocytes Absolute Auto 3.71 K/mm3 (1.10-4.50); Mean Corpuscular HGB Conc 32.0 g/dL (32-36); Mean Corpuscular Hemoglobin 32.3 pg (27.0-31.0); Mean Corpuscular Volume 101.0 fL (78.0-102.0); Nucleated Red Blood Cells Absolute Auto 0.00 K/mm3 (0.00-0.00); Nucleated Red Blood Cells Perc 0.0 % (0-0.0); Platelet Count Result 253 K/mm3 (150-420); Red Blood Count 4.09 M/mm3 (4.20-5.40); White Blood Count 10.3 K/mm3 (4.8-10.8)
[2025-08-28 01:31] LABS: Alanine Aminotransferase 20 U/L (6-35); Albumin Level 4.7 g/dL (3.5-5.1); Alkaline Phosphatase 98 U/L (38-126); Anion Gap 11 mmol/L (4-12); Aspartate Amino Transferase 28 U/L (14-36); Bilirubin,Total 0.5 mg/dL (0.2-1.3); Blood Urea Nitrogen 21 mg/dL (7-17); Calcium 9.8 mg/dL (8.4-10.2); Carbon Dioxide 27 mmol/L (22-30); Chloride 102 mmol/L (98-107); Estimated CRCL calculation 39 ml/min; Estimated Glomerular Filt Rate 46; Glucose 113 mg/dL (65-110); Osmolality Calculated 294 mOsm/kg (285-295); Potassium 3.8 mmol/L (3.4-5.0); Sodium 140 mmol/L (137-145); Total Protein 7.5 g/dL (6.3-8.2)
[2025-08-28] MEDS: LACTATED RINGERS 1,000 ML 999 ML IV CONT (02:00)
[2025-08-28] MEDS: MORPHINE SULFATE (*CRX) 2 MG/ML INJ IV PUSH (02:00)
[2025-08-28 02:11] LABS: Add Urine Microscopic? NO; Appearance Urine Clear (Clear); Glucose Urine UA Negative (Negative); Leukocyte Esterase Ur Negative LEU/UL (Negative); Nitrate Urine Negative (Negative); Specific Grav Ur 1.020 (1.010-1.020)
[2025-08-28 02:13] VITALS: O2SAT 82; O2SAT 95
[2025-08-28 04:23] VITALS: BP 134/78; PULSE 65; RESP 18; O2SAT 94
--- OUTSIDE RECORDS SUMMARY | 2025-08-28 05:20 | XMS_ITS | Clinical Summary ---
Author Organization [facility] Address [address] [place] [address] Care Team Providers Care Stonework Supervisor Name Role Phone Jeanmarie Mcmullen MD Unavailable Saul Torres MD Unavailable [phone] Destin Connors DO Primary Care Provider Allergies Active Allergy Reactions Criticality Noted Date [...] Group 06/06/2025 3:20 PM CDT Office Visit [facility] - [address], [address] [place] [address] Matilda Bolton, ZOFIA Follow Up [...] free 10/10/2000 Tdap (Generic) 05/03/2013 Zoster (Zostavax) 78301 Unt/0.65Ml 02/26/2009 Family History Medical History Relation [...] Sex Assigned at Female 11/22/2024 8:59 AM ELECTRIC TRACK SWITCH MAINTAINER Legal Sex Female 9:49 PM CDT Gender [...] st Contact Info) Description 11/18/2025 10:20 AM ELECTRIC TRACK SWITCH MAINTAINER Office Visit [facility] - [facility] [address] [place] [id number] Tony Souza DO [address] [place] [address] Health Maintenance Due Date Last Done Comments [...] Vaccines Completed 06/28/2023, 04/09, 02/26/2009 PHQ-2 (Physician [place]) Completed 11/07/2024 Hepatitis A Vaccines Aged Out [...] Britton RN Medical Devices Implanted Type Area Underwriting Service Representative Device Identifier Shelf Expiration Date Model / Serial / Lot Putty Manda Matrix Dbm/Dbf Bone 1cc - [id number] Implanted:Qty: 1 on 02/08/2018 by Devaughn Butler MD at [facility] Bone N/A: Spine Cervical [employer] 07/12/2019 [id number] / / [id number] Mastergraft Sofamor Danek 10ml - [id number] Implanted:Qty: 1 on 08/20/2020 by Devaughn Butler MD at [facility] Bone N/A: Spine Cervical [employer] 09/08/2022 [id number] / / [id number] Graft Infuse Bone Large Ii - [id number] Implanted:Qty: 1 on 08/20/2020 by Devaughn Butler MD at [facility] Bone N/A: Spine Cervical [employer] 05/10/2021 [id number] / / [id number] Plate Implanted:Qty: 1 on 02/08/2018 by Devaughn Butler MD at [facility] Plate N/A: Spine Cervical INDIGO SPINE - DIV INDIGO KAVIN [id number] / / Screws Implanted:Qty: 1 on 02/08/2018 by Devaughn Butler MD at [facility] Screw N/A: Spine Cervical INDIGO SPINE - DIV INDIGO KAVIN [id number] / / Screw Biased Indigo Oasys 3.5 X 14mm - [id number] Implanted:Qty: 8 on 08/20/2020 by Devaughn Butler MD at [facility] Screw N/A: Spine Cervical INDIGO SPINE - DIV INDIGO KAVIN [id number] / / Description:C3-C7 4.0x24mm Medial Bias Screw Implanted:Qty: 2 on 08/20/2020 by Devaughn Butler MD at [facility] Screw N/A: Spine Cervical INDIGO SPINE - DIV INDIGO KAVIN [id number] / / Description:T1 Mode Indigo Oasys - [id number] Implanted:Qty: 10 on 08/20/2020 by Devaughn Butler MD at [facility] Screw N/A: Spine Cervical INDIGO SPINE - DIV INDIGO KAVIN [id number] / / Stent Propel 23mm - [id number] Implanted:Qty: 1 on 09/28/2017 by Saul Torres MD at [facility] Stent Left: Nose INTERSECT ENT 06/10/2019 [id number] / / [id number] Stent Propel 23mm - [id number] Implanted:Qty: 1 on 09/28/2017 by Saul Torres MD at [facility] Stent Right: Nose INTERSECT ENT 06/10/2019 [id number] / / [id number] Propel Contour Implanted:Qty: 1 on 09/28/2017 by Saul Torres MD at [facility] Left: Nose INTERSECT ENT 05/10/2018 / / [id number] Propel Contour Implanted:Qty: 1 on 09/28/2017 by Saul Torres MD at [facility] Right: Nose INTERSECT ENT 05/10/2018 [id number] / / [id number] Duramatrix Implanted:Qty: 1 on 02/08/2018 by Devaughn Butler MD at [facility] N/A: Spine Cervical INDIGO CRANIOMAXILLOFACIAL - DIV INDIGO CO 06/09/2019 [id number] / / [id number] Cervical Interbody Implanted:Qty: 2 on 02/08/2018 by Devaughn Butler MD at [facility] N/A: Spine Cervical SE[employer]INE 05/06/2022 [id number] / / [id number] 70mm Crow Implanted:Qty: 2 on 08/20/2020 by Devaughn Butler MD at [facility] N/A: Spine Cervical INDIGO SPINE - DIV INDIGO KAVIN [id number] / / Description:C3-T1 Explanted Type Area Underwriting Service Representative Device Identifier Shelf Expiration Date Model / Serial / Lot Distration Pin 12mm - [id number] Explanted:Qty: 1 on 02/08/2018 at [facility] Pin N/A: Spine Cervical [employer] DP-12-TB / / Distration Pin 12mm - [id number] Explanted:Qty: 1 on 02/08/2018 at [facility] Pin N/A: Spine Cervical [employer] DP-12-TB / / Insurance [facility] MEDICARE Advance Directives Documents on File Type Date Recorded Patient Accounting Assistant Expl anation Legal Documents 09/05/2020 Office conse [...] 11:17 AM 02/12/2018 11:27 AM Care Teams Stonework Supervisor Relationship Specialty Start Date End Date Destin Connors DO [address] [place] [address] PCP - General FAMILY PRACTICE 05/08/24 Jeanmarie Mcmullen MD [facility]. [address] [place] [address] [place] [employer] Engine Firer/Fireman CARDIOVASCULAR DISEASE 09/21/17 Saul Torres MD [facility]. [address] [place] [address] Referring Physician OTOLARYNGOLOGY 09/21/17
--- OUTSIDE RECORDS SUMMARY | 2025-08-28 05:20 | XMS_ITS | Encounter Summary ---
Author Organization [facility] Address [address] [place] [address] Care Team Providers Care Conductor Pullman Name Role Phone Dedra Liang DO Primary Care Provider [phone] Jeanmarie Mcmullen MD Unavailable Saul Torres MD Unavailable [phone] Destin Connors DO Primary Care Provider [phone] Encounter Details Date Type Department Care Team (Late st Contact Info) Description 03/12/2018 Hospital Follow-up Call [facility] [place] [address] Tasia Castillo, [facility] [place] [address] Social History Tobacco Use Types [...] Sex Assigned at Female 11/22/2024 8:59 AM FILER FINISH Legal Sex Female 9:49 PM CDT Gender Identity Not on file Sexual Orientation Not on file Occupation Industry Job Start Date Job End Date Not on file Not on file Not on file Not on file documented as of this encounter Plan of Treatment Upcoming Encounters Date Type Department Care Team (Late st Contact Info) Description 11/18/2025 10:20 AM FILER FINISH Office Visit [facility] Mult[facility]pec[facility]ty Care - [facility] [address] [facility] [address] [place] [address] SouzaTony kilpatrick [address] [place] [address] documented as of this encounter Visit Diagnoses Not on filedocumented in this encounter Additional Health Concerns Infection Onset Date Last Indicated Resolved Time COVID-19 Rule Out 08/17/2020 08/17/2020 08/18/2020 1:56 PM FILER FINISH COVID-19 Rule Out 03/20/2021 03/20/2021 03/21/2021 2:56 PM CDT documented as of this encounter Care Teams Conductor Pullman Relationship Specialty Start Date End Date Dedra Liang DO [address] [place] [address] PCP - General FAMILY PRACTICE 09/21/17 05/07/24 Destin Connors DO [address] [place] [address] PCP - General FAMILY PRACTICE 05/08/24 Jeanmarie Mcmlulen MD [address] [facility] [address] [place] [address] [place] It Infrastructure Consultant CARDIOVASCULAR DISEASE 09/21/17 Saul Torres MD [facility]. [address] [place] [address] Referring Physician OTOLARYNGOLOGY 09/21/17 documented as of this encounter
--- OUTSIDE RECORDS SUMMARY | 2025-08-28 05:20 | XMS_ITS | Clinical Summary ---
Author Organization [facility] [address] Address [address] [place] [address] Care Team Providers Care Bus Dispatcher Interstate Name Role Phone Saul Torres MD Unavailable [phone] Destin Connors DO Primary Care Provider Allergies Active Allergy Reactions Criticality Noted Date Comments Gabapentin Mental status changes Low 08/12/2025 Became very irritable Medications calcium carbonate-vitami n D3 (CALTRATE 600 + D) 1500 mg (600 mg elemental) -400 units per tablet Take 1 tablet by mouth 2 (two) times a day 02/21/20 18 Active furosemide (LASIX) 20 mg tablet Take 1 tablet (20 mg total) by mouth daily 09/18/20 19 Active simvastatin (ZOCOR) 80 mg tablet Take 1 tablet (80 mg total) by mouth nightly 03/29/20 20 Active verapamil SR (CALAN SR) 240 mg CR tablet Take 1 tablet (240 mg total) by mouth daily 09/18/20 19 Active meclizine (ANTIVERT) 25 mg tablet Take 1 tablet (25 mg total) by mouth as needed for dizziness Active ascorbic acid (VITAMIN C) 500 mg tablet,chewable Take 1 tablet/chew tab (500 mg total) by mouth daily Active rOPINIRole (REQUIP) 0.25 mg tablet Take 1 tablet (0.25 mg total) by mouth nightly 11/08/19 23 Active docusate sodium (COLACE) 100 mg capsuleIndicatio ns:constipation Take 1 capsule (100 mg total) by mouth 2 (two) times a day Active polycarbophil (FIBERCON) 625 mg tablet Take 1 tablet (625 mg total) by mouth daily as needed for constipation Vegetable Laxative Active cilostazoL (PLETAL) 100 mg tablet Take 1 tablet (100 mg total) by mouth 2 (two) times a day 10/10/19 24 Active jcfjvyir-elr-gwm n-FA-vit K-lut 8 mg iron-400 mcg-50 mcg tablet Take 1 tablet by mouth daily Active biotin 5,000 mcg tablet,chewable Take 1 tablet/chew tab by mouth daily Active lisinopriL (PRINIVIL,ZESTRI L) 20 mg tablet Take 1 tablet (20 mg total) by mouth daily Active hydrocortisone 2.5 % cream Apply 1 Application topically as needed for irritation or rash 08/24/20 23 Active ketoconazole (NIZORAL) 2 % cream Apply 1 Application topically as needed for itching, irritation or rash 07/13/20 23 Active fluticasone propionate (Xhance) 93 mcg/actuation aerosol breath activatedIndicat ions:Chronic pansinusitis,Jabari al polyps Administer 1 spray into affected nostril(s) 2 (two) times a day 16 mL 6 03/28/20 25 Active ciprofloxacin (CIPRO) 500 mg tabletIndication s:Chronic pansinusitis Take 1 tablet (500 mg total) by mouth 2 (two) times a day for 10 days 20 tablet 08/12/20 25 025 Active Problems Problem Noted Date Diagnosed Date [...] 11/23/2023 Assessment & Plan (12/11/2024 11:37 AM COMMERCIAL ENERGY RATER): Nasal cavity looks pretty good on both sides. Probably dealing with an upper respiratory infection or sinusitis. I recommended that she continue with the Xhance. It appears to be helping a great deal. Assessment & Plan (11/28/2023 6:47 PM COMMERCIAL ENERGY RATER): Her nasal airway looks pretty good. I [...] months. Assessment & Plan (08/29/2023 1:30 PM COMMERCIAL ENERGY RATER): Endoscopically she does have some evidence of [...] her. I told her to contact our machine shop repair technician for this and she is going to [...] also discussed potentially referring her to a riprap man. She would rather not do that. She would like to pursue endoscopic sinus surgery again. Has no questions. Assessment & Plan (12/11/2024 11:36 AM COMMERCIAL ENERGY RATER): She has some discharge coming from the [...] changed. Assessment & Plan (11/28/2023 6:48 PM COMMERCIAL ENERGY RATER): Endoscopically her sinuses look okay. Everything appears to be pretty open without significant abnormal discharge. I am recommending continue with the Xhance. Call if she has any problems with infection. Otherwise the plan is for a follow-up in about 6 months. Assessment & Plan (08/29/2023 1:19 PM COMMERCIAL ENERGY RATER): I am recommending continued observation. Symptomatically she [...] if she should have any further symptoms. Encounters Date Type Department Care Team Description 08/12/2025 Telephone [facility] Otolaryngology [address] [place] [id number] Kimmy Thompson LPN Sinusitis from Last 3 Months Surgical History Surgery Date Site/Laterality Comments FUNCTIONAL ENDOSCOPIC SINUS SURGERY 09/28/2017 Bilateral bulateral maxes, total ethmoids, frontals sphenoids excision CB REPLACEMENT TOTAL KNEE 11/30/2018 Left HYSTERECTOMY 1979's REPLACEMENT TOTAL KNEE 10/10/2010 - 10/09/2011 Right KNEE ARTHROSCOPY 10/10/2019 - 10/09/2020 Left BREAST BIOPSY Left 1979'S BENIGN SINUS SURGERY 07/11/2020 COLONOSCOPY 10/10/2018 - 10/09/2019 CERVICAL SPINE SURGERY 10/10/2016 - 10/09/2017 CATARACT EXTRACTION Bilateral NASAL/SINUS ENDOSCOPY 02/15/2025 Face/Bilateral Procedure: IMAGE GUIDED ENDOSCOPIC LEFT FRONTAL SINUSOTOMY, LEFT SPHENOIDOTOMY AND LEFT ANTERIOR ETHMOIDECTOMY; Surgeon: Saul Torres MD; Location: [facility]PER[facility]; Service: Otolaryngology; Laterality: Bilateral; Medical [...] on file Legal Sex Female 8:17 PM COMMERCIAL ENERGY RATER Gender Identity Not on file Sexual Orientation Not on file Last Filed Vital Signs [...] 06/03/2015, 12/29/2006 Medical Devices Implanted Type Area Tmd Teacher Assistant Device Identifier Shelf Expiration Date Model / Serial / Lot Plate Plate Bilateral : Neck Description:Plate in back Bilateral Knee Replacements Bilateral : Knee Insurance [facility] MEDICARE ADVANTAGE [facility] Address: [facility] [id number] [place] [phone] MEDICARE [facility] [address] [facility] MEDICARE ADVANTAGE [facility] Address: [address] [address] [place] [address] Care Teams Bus Dispatcher Interstate Relationship Specialty Start Date End Date Destin Connors DO [address] [place] [address] PCP - General Family Medicine 02/15/25 Saul Torres MD [address] [place] [address] Consulting Physician Otolaryngology 05/23/23
--- OUTSIDE RECORDS SUMMARY | 2025-08-28 05:21 | XMS_ITS | Patient Health Record ---
Author Organization [facility] Address [address] [place], [place] [id number] Support Name Relationship Address Phone GILBERTO ASHER Guarantor Unknown [phone] Reason For Referral No Information Plan Of Treatment No Information Insurance Providers Payer Name Payer Address Payer Phone Subscriber Number Group Number Insured Name Patient Relationship to Insured Coverage Start Date Coverage End Date Medicare Part B [place] [address] [place] [address] [id number] GILBERTO ASHER Self - patient is the insured [facility] [address] [address] [place], [place] [id number] GILBERTO ASHER Self - patient is the insured
--- OUTSIDE RECORDS SUMMARY | 2025-08-28 05:21 | XMS_ITS | Encounter Summary ---
Author Organization [facility] Address [address] [place] [address] Care Team Providers Care Automatic Typewriter Inspector Name Role Phone Garth Dedra S DO Primary Care Provider [phone] Jeanmarie Mcmullen MD Unavailable Saul Torres MD Unavailable [phone] Destin Connors DO Primary Care Provider [phone] Encounter Details Date Type Department Care Team (Late st Contact Info) Description 03/17/2019 Abstract [facility] CONVERSION [address] [place] [address] , Generic Conversion, Social History [...] Sex Assigned at Female 11/22/2024 8:59 AM CUSTOMER GREETER Legal Sex Female 9:49 PM CDT Gender Identity Not on file Sexual Orientation Not on file Occupation Industry Job Start Date Job End Date Not on file Not on file Not on file Not on file documented as of this encounter Plan of Treatment Upcoming Encounters Date Type Department Care Team (Late Contact Info) Description 11/18/2025 10:20 AM CUSTOMER GREETER Office Visit [facility] Multispecialty Care - [address], [address] [place] [address] Tony Souza DO [address] [place] [address] documented as of this encounter Visit Diagnoses Not on filedocumented in this encounter Additional Health Concerns Infection Onset Date Last Indicated Resolved Time COVID-19 Rule Out 08/17/2020 08/17/2020 08/18/2020 1:56 PM CUSTOMER GREETER COVID-19 Rule Out 03/20/2021 03/20/2021 03/21/2021 2:56 PM CDT documented as of this encounter Care Teams Automatic Typewriter Inspector Relationship Specialty Start Date End Date Dedra Liang DO [address] [place] [address] PCP - General FAMILY PRACTICE 09/21/17 05/07/24 Destin Connors DO [address] [place] [address] PCP - General FAMILY PRACTICE 05/08/24 [facility] Mc[facility]ullen [facility] [address] [place] [address] [place] Event Specialist CARDIOVASCULAR DISEASE 09/21/17 Saul [facility] MD [facility] [address] [place], [place] [address] Referring Physician OTOLARYNGOLOGY 09/21/17 documented as of this encounter
--- OUTSIDE RECORDS SUMMARY | 2025-08-28 05:21 | XMS_ITS | Encounter Summary ---
Author Organization [facility] Address [address] [place] [address] Care Team Providers Care Radio Division Captain Name Role Phone Dedra Liang DO Primary Care Provider [phone] Jeanmarie Mcmullen MD Unavailable Saul Torres MD Unavailable [phone] Destin Connors DO Primary Care Provider [phone] Encounter Details Date Type Department Care Team (Late st Contact Info) Description 09/28/2017 RX Orders Only [facility] [place] [address] Yobani Vazquez, [facility] Social History Tobacco Use Types Packs/Day Years [...] Sex Assigned at Female 11/22/2024 8:59 AM RETAIL TIRE SALES MANAGER Legal Sex Female 9:49 PM CDT Gender Identity Not on file Sexual Orientation Not on file documented as of this encounter Plan of Treatment Upcoming Encounters Date Type Department Care Team (Late Contact Info) Description 11/18/2025 10:20 AM RETAIL TIRE SALES MANAGER Office Visit [facility] Medical Group Multispecialty Care - [facility] [address] [facility] [address] [place] [address] Tony Souza DO [address] [place] [address] documented as of this encounter Visit Diagnoses Not on filedocumented in this encounter Additional Health Concerns Infection Onset Date Last Indicated Resolved Time COVID-19 Rule Out 08/17/2020 08/17/2020 08/18/2020 1:56 PM RETAIL TIRE SALES MANAGER COVID-19 Rule Out 03/20/2021 03/20/2021 03/21/2021 2:56 PM CDT documented as of this encounter Care Teams Radio Division Captain Relationship Specialty Start Date End Date Dedra Liang DO [address] [place] [address] PCP - General FAMILY PRACTICE 09/21/17 05/07/24 Destin Connors DO [address] [place] [address] PCP - General FAMILY PRACTICE 05/08/24 [facility] [address] [place] [address] [place] [employer] House Broker CARDIOVASCULAR DISEASE 09/21/17 Saul Torres MD [facility] [address] [place] [address] Referring Physician OTOLARYNGOLOGY 09/21/17 documented as of this encounter
--- OUTSIDE RECORDS SUMMARY | 2025-08-28 05:21 | XMS_ITS | Encounter Summary ---
Author Organization [facility] Address [address] [place] [address] Care Team Providers Care Asbestos Worker Helper Name Role Phone Jeanmarie Mcmullen MD Unavailable Saul Torres MD Unavailable [phone] Destin Connors DO Primary Care Provider [phone] Encounter Details Date Type Department Care Team (Latest Contact Info) Description 03/14/2025 Worlds Message Enc [facility] Medical Group Multispecialty Care - [address], [address] [place] [address] deskwolfdl, [facility] Provider Pre-Op Instructions/Educat ion Social History [...] Sex Assigned at Female 11/22/2024 8:59 AM REED OR WIND INSTRUMENT REPAIRER Legal Sex Female 9:49 PM CDT Gender [...] Assessment Author Status No 08/20/2020 5:28 PM REED OR WIND INSTRUMENT REPAIRER Activ e * RETIRED Are you blind or do you have serious difficulty seeing, even when wearing glasses? Answer Date of Assessment Author Status No 08/20/2020 5:28 PM REED OR WIND INSTRUMENT REPAIRER Activ e * Do you have serious difficulty walking or climbing stairs? Answer Date of Assessment Author Status No 08/20/2020 5:28 PM REED OR WIND INSTRUMENT REPAIRER Marjan Fulton RN Active * Do you have difficulty dressing or bathing? Answer Date of Assessment Author Status No 08/20/2020 5:28 PM REED OR WIND INSTRUMENT REPAIRER Marjan Fulton RN Active * Because of a physical, mental, or emotional condition, do you have difficulty doing errands alone such as visiting a doctor's office or shopping? Answer Date of Assessment Author Status No 08/20/2020 5:28 PM REED OR WIND INSTRUMENT REPAIRER Marjan Fulton RN Active documented as of this encounter Mental Status * Because of a physical, mental, or emotional condition, do you have serious difficulty concentrating, remembering, or making decisions? Answer Entry Date Author Status No 08/20/2020 5:28 PM REED OR WIND INSTRUMENT REPAIRER Marjan Fulton RN Active documented in this encounter Plan of Treatment Upcoming Encounters Date Type Department Care Team (Late st Contact Info) Description 11/18/2025 10:20 AM REED OR WIND INSTRUMENT REPAIRER Office Visit [facility] Medical Group Multispecialty Care - [facility] [address] [facility] [address] [place] [address] Tony Souza DO [address] [facility] [address] [place] [address] documented as of this encounter Visit Diagnoses Not on filedocumented in this encounter Additional Health Concerns Assessment Noted Time PHQ-9 Depression Total Score: 0 09/16/20 21 10:06 AM REED OR WIND INSTRUMENT REPAIRER documented as of this encounter Care Teams Asbestos Worker Helper Relationship Specialty Start Date End Date Destin Connors DO [address] [place] [address] PCP - General FAMILY PRACTICE 05/08/24 Jeanmarie Mcmullen MD Three [facility]. [address] [address] [place] Activity Director CARDIOVASCULAR DISEASE 09/21/17 Saul Torres MD Three [facility]. [address] [address] Referring Physician OTOLARYNGOLOGY 09/21/17 documented as of this encounter
== END 2025-08-28 04:23 | disposition home or self-care (01) ==
PROVIDERS: Emergency Provider Emergency Medicine; PCP Family Medicine
DX: R05.3 Chronic cough (principal); T46.4X5A Adverse effect of angiotensin-converting-enzyme inhibitors, initial encounter; E78.5 Hyperlipidemia, unspecified; I10 Essential (primary) hypertension; Z87.891 Personal history of nicotine dependence
CPT/HCPCS: 36415; 70491; 71045; 71260; 74177; 80053; 81003; 85025; 96361; 96374; 96375; 96376; 99284; J2270; J2405; J7120; Q9967

== ENCOUNTER 2025-08-29 13:21 | Outpatient (CLI) | payer MEDICARE, SELFPAY ==
--- NOTE | ~2025-08-29 | MR_ITS ---
EXAM/PROCEDURE: MR orbits face neck wo/w con HISTORY: R59.0 - Localized enlarged lymph nodes COMPARISON: Soft tissue neck CT August 28 TECHNIQUE: Pre and postcontrast multiplanar facial MRI performed. FINDINGS: No suspicious lymphadenopathy, masses or drainable fluid collection. Numerous nonpathologic sized lymph nodes are seen in the supraclavicular region, as well as along the sternocleidomastoid regions, jugulodigastric, posterior triangle and occipital regions as well as submental regions. Fusion hardware present in C4-C6, and posterior fusion hardware present C3-C7. No gross acute hardware complication. Evaluation of the medial tissues about the fusion hardware limited due to magnetic susceptibility artifact. No acute or aggressive bony process. No drainable fluid collection. Heterogeneous nodular appearing changes in the thyroid gland. IMPRESSION: 1. Numerous nonpathologic sized lymph nodes throughout the neck including both supraclavicular regions with no large mass or gross lymphadenopathy. The number of lymph nodes however is concerning for lymphoproliferative process. Correlate with clinical presentation and history. If patient does not have known history of underlying malignant or lymphoproliferative disease, follow-up soft tissue neck MRI or CT in 3 months is recommended. 2. Heterogeneous appearance of the thyroid gland with small nodules likely present. Correlate with thyroid ultrasound. 3. Other findings as above. Reviewed, dictated and finalized at location A. TAL CONTENT COORDINATOR IMPRESSION: 1. Numerous nonpathologic sized lymph nodes throughout the neck including both supraclavicular regions with no large mass or gross lymphadenopathy. The number of lymph nodes however is concerning for lymphoproliferative process. Correlat e with clinical presentation and history. If patient does not have known histor y of underlying malignant or lymphoproliferative disease, follow-up soft tissue neck MRI or CT in 3 months is recommended. 2. Heterogeneous appearance of the thyroid gland with small nodules likely pres ent. Correlate with thyroid ultrasound. 3. Other findings as above.
--- OUTSIDE RECORDS SUMMARY | 2025-08-29 16:19 | XMS_ITS | Patient Health Record ---
Author Organization [facility] Address [address] [place], [place] [id number] Support Name Relationship Address Phone GILBERTO ASHER Guarantor Unknown [phone] Reason For Referral No Information Plan Of Treatment No Information Insurance Providers Payer Name Payer Address Payer Phone Subscriber Number Group Number Insured Name Patient Relationship to Insured Coverage Start Date Coverage End Date Medicare Part B [place] [address] [place] [address] [id number] GILBERTO ASHER Self - patient is the insured [facility] [address] [address] [place], [place] [id number] GILBERTO ASHER Self - patient is the insured
== END 2025-08-29 13:22 | disposition home or self-care (01) ==
LOC: CHSIMG 13:22
PROVIDERS: PCP Family Medicine; Visit Provider Family Medicine
DX: C85.90 Non-Hodgkin lymphoma, unspecified, unspecified site (principal); R59.0 Localized enlarged lymph nodes
CPT/HCPCS: 70543; A9577